=== PATIENT | female | born 1995 | race Caucasian/White ===

== ENCOUNTER 2019-02-04 14:20 | Outpatient (CLI) | payer MEDICAID, SELFPAY ==
[2019-02-04 14:44] LABS: Abs Immature Grans 0.01 k/cumm (0.0-0.09); Absolute Basophil Count 0.02 k/cumm (0.0-0.2); Absolute Eosinophil Count 0.05 k/cumm (0.0-0.7); Absolute Lymphocyte Count 2.07 k/cumm (1.2-3.4); Absolute Monocyte Count 0.45 k/cumm (0.11-0.7); Absolute Neutrophil Count 4.75 k/cumm (1.2-6.7); Basophils % 0.3; Eosinophils % 0.7; HCT 32.8 % (36.0-46.0); HGB 11.3 g/dL (12.0-15.5); Immature Grans % 0.1; Lymphocytes % 28.2; Mean Corp. HGB Concentration 34.5 g/dL (32.0-36.0); Mean Corpuscular Hemoglobin 30.8 pg (27.0-33.0); Mean Corpuscular Volume 89.4 fL (80-95); Mean Platelet Volume 12.3 fL (8.0-11.0); Monocytes % 6.1; Neutrophils % 64.6; Platelet Count 128 x1000/uL (130-400); RBC 3.67 m/cumm (4.00-5.20); RBC Distribution Width 12.5 % (11.7-14.6); White Blood Cell Count 7.35 k/cumm (4.4-10.8)
[2019-02-05 10:32] LABS: Hepatitis B Surface Ag Negative (NEGAT)
[2019-02-05 10:37] LABS: HIV-1/2 Ag & Ab Screen Negative (NEGAT); Hepatitis C Ab w Rflx HCV PCR Negative (NEGAT)
[2019-02-05 10:52] LABS: Rubella IgG Ab (UVM) Positive
[2019-02-05 10:59] LABS: Varicella IgG Antibody Negative
[2019-02-05 16:33] LABS: Syphilis Total Ab w/Reflex Nonreactive (Nonreactive)
== END 2019-02-04 14:40 ==
PROVIDERS: PCP Nurse Practitioner Family; Visit Provider Advanced Practice Midwife
DX: Z34.91 Encounter for supervision of normal pregnancy, unspecified, first trimester (principal); Z11.4 Encounter for screening for human immunodeficiency virus [HIV]; Z11.59 Encounter for screening for other viral diseases; Z11.3 Encounter for screening for infections with a predominantly sexual mode of transmission
CPT/HCPCS: 36415; 80307; 86787; 86803; 86850; 86900; 86901; 87340; 87389; 87491; 87591; 85025; 86762; 86780; 87086

== ENCOUNTER 2019-04-01 03:42 | Outpatient (CLI) | payer MEDICAID, SELFPAY ==
--- NOTE | 2019-04-01 09:38 | DI.US_ITS ---
SYMPTOMS/DIAGNOSIS: 18-WEEK ANATOMY SURVEY, Z34.90 OB ULTRASOUND: Predicted Gestational Age: Indication/History: 18+1 Wks Range: 17+1 to 19+1 Prior US done on: Determined by: First US LMP History EDC by prior US: 09/01/2019 For multiple gestations: Baby PLACENTA: Grade: 0 Location: Anterior Posterior PRESENTATION: RT LT LOW LYING PREVIA Cephalic Trans (Head RT LT ) Varied X Breech BIOMETRY: Anatomy Identified: BPD: 45 mm 19+3 wks 4-chamber Heart X Heart Rate 152 BPM HC: 156 mm 18+4 wks LVOT X Post Fossa X AC: 135 mm 18+6 wks RVOT X Ventricles X FL: 27mm 18 wks Stomach X Nose X Bladder X Lips X Cisterna Magna: 3.4 mm CI: 89 Kidneys X Palate X Cerebellum: 1.8 cm 3- vessel cord X Spine X EFW: grms % Cord Insertion X NS= not seen Composite Age (US) 18+5 wks Many abnormalities cannot be diagnosed. A normal exam does not exclude congenital abnormality. EDC by US: 08/28/2019 Amniotic Fluid Index: Normal TECH COMMENTS: ? mildly prominent right renal pelvis = 3.2 mm RUQ: LUQ: RLQ: LLQ: Total: cm Biophysical Profile: Score 0/2 DIANA (>2cm) Respirations (>30 sec) Body flexion/extension Extremity flexion/extension TOTAL SCORE RADIOLOGIST COMMENTS: The fetus was in variable position during the exam. The placenta is anterior. The biometric measurements correspond to 18 weeks 5 days and an EDC of August,. Amount of amniotic fluid appears normal. There is minimal prominence of the right renal pelvis, which appears to be within normal limits of variation. IMPRESSION: survey is within normal limits.
== END 2019-04-01 04:02 ==
PROVIDERS: PCP Nurse Practitioner Family; Visit Provider Advanced Practice Midwife
DX: Z34.90 Encounter for supervision of normal pregnancy, unspecified, unspecified trimester (principal)
CPT/HCPCS: 76805

== ENCOUNTER 2019-04-03 14:17 | Emergency (ER) | payer MEDICAID, SELFPAY ==
[2019-04-03 14:20] VITALS: BP 115/71; PULSE 69; RESP 16; TEMP 36.8; O2SAT 11
--- NOTE | 2019-04-03 14:33 | ED.GENADUL_ITS ---
Discharge Plan Disposition Patient Disposition: HOME Condition: Stable Discharge Details Chief Complaint: EyeProblem Clinical Impression: Right corneal abrasion Primary Care Provider: Milagro Corona ED Provider: Srinivas Gardner Home Meds and New Rx's Prescriptions: No Action folic acid 20 mg capsule 20 mg PO DAILY RF: 0 blood builder 1 tab PO DAILY Qty: 60 RF: 0 Discharge Instructions Instructions: Corneal Abrasion (ED) Additional Instructions: if you are not better on Saturday call [facility] at [phone] for an appointment if you are having worsening pain or vision changes return to the emergency department use the antibiotic ointment for 5 days Medical Decision Making 24 yo female comes in with right eye pain since last night after her cat scratched her per pt. She denies other injuries. She has pain in the right upper portion of her eye, denies deep eye pain, no drainage, no periorbital swelling, eomi, perrl, conjunctiva is injected. The vision in the left eye is 20/20 and the right eye is 20/30. Immediate relief of pain with tetracaine. On flourescein staining has a small 2mm corneal abrasion on conjunctiva at the 11 oclock position no evidence of globe rupture or hyphema or ititis. Will start on abx ointment and if not better by Saturday f/u with [facility] Differential Diagnosis conjunctivitis, corneal abrasion HPI General Mode of arrival: ambulatory . Date/Time Provider Initiated Documentation: 04/03/19 14:18 . Limitations to Documentation: no limitations . Information obtained by: patient . History of Present Illness 24 year old F presents to the emergency department with the chief complaint of right eye pain, described as moderate, Quality is described as aching, No relieving factors improve symptom(s), No exacerbating factors reported . Patient did receive the following treatments prior to arrival, none Related Data Home Medications Medication Instructions Recorded Confirmed folic acid 20 mg capsule 20 mg PO DAILY 01/22/19 04/03/19 blood builder 1 tab PO DAILY #60 tab 03/04/19 04/03/19 Previous Rx's Medication Instructions Recorded blood builder 1 tab PO DAILY #60 tab 03/04/19 Allergies Allergy/AdvReac Type Severity Reaction Status Date / Time No Known Allergies Allergy Verified 04/03/19 14:24 General Stated Complaint: EyeProblem WESLEY: 4 Review of Systems Review of Systems All systems reviewed & are unremarkable except as noted in HPI and below Constitutional Denies chills, Denies fever(s) and Denies weakness Cardiovascular Denies chest pain and Denies dyspnea Respiratory Denies cough and Denies dyspnea Gastrointestinal Denies abdominal pain, Denies nausea and Denies vomiting Musculoskeletal Denies joint swelling Neurologic Denies weakness PFSH Medical History (Updated 02/04/19 @ 12:41 by Dee Carbone LPN) IUD surveillance (Resolved) Surgical History (Updated 01/22/19 @ 18:02 by Sherry Victoria MD) Tooth extraction (Resolved) Family History Grandmother Essential hypertension Thyroid disease Grandfather Heart disease Sister Seizure disorder Social History Smoking/Tobacco Use Status: Never Alcohol Intake: never Drug use: Occasionally Substance use type: marijuana Do you feel safe at home: Yes Do you feel safe in your relationship?: Yes Female Reproductive History Menstrual Age of Menarche: 11 control method: none History History 2 Para 1 Hx # Term Pregnancies 1 Multiple births 0 Hx # Pregnancies 0 Ectopic pregnancies 0 AB induced 0 Hx Number of Living Children 1 AB spontaneous 0 Past Pregnancies Del. Date GA/Weeks # Outcome Route Wgt Sex Labor Lgth Anesthes ia Location Prov Complic 01/08/17 41 No Successful vaginal 3.941 kg Female [address] [place], [place] [id number] S[facility] Delivery Date: 01/08/17 On 02/04/19 @ 13:09 YOLANDA POTTS iol for post dates. w/o complications. Exam Const General: no acute distress Orientation: alert HENMT Head: normal to inspection Ears: external ears normal General nose exam: external nose normal Mouth: moist mucous membranes Eyes Pupils: PERRL Neck Neck: normal visual inspection Resp Effort & Inspection: normal respiratory effort and able to speak in complete sentences Cardio Rate: regular rate Skin General skin exam: no rashes or lesions noted Neuro General: alert and oriented x3 Extrem General: normal to inspection Psych Mental Status: mental status grossly normal Course Vital Signs Temperature 36.8 C 04/03/19 14:20 Pulse 69 04/03/19 14:20 Respiratory Rate 16 04/03/19 14:20 Blood Pressure 115/71 04/03/19 14:20 Pulse Oximetry 11 L 04/03/19 14:20 Temperature 36.8 C 04/03/19 14:20 Pulse 69 04/03/19 14:20 Respiratory Rate 16 04/03/19 14:20 Blood Pressure 115/71 04/03/19 14:20 Blood Pressure Position Sitting 04/03/19 14:20 Pulse Oximetry 11 L 04/03/19 14:20 Oxygen Delivery Method Room Air 04/03/19 14:20 Oxygen Flow Rate 0 04/03/19 14:20 Pain Level 5 04/03/19 14:20
[2019-04-03] MEDS: Erythromycin Ophth Oint 3.5 GM TUBE OP (14:36)
[2019-04-03] MEDS: Balanced Salt Solution 15 ML BTL OP (14:36)
[2019-04-03] MEDS: Tetracaine 0.5% 4 ML BTL OP (14:37)
[2019-04-03] MEDS: Fluorescein STRIPS 100/BOX 1 MG OP (14:37)
== END 2019-04-03 14:52 | disposition home or self-care (01) ==
PROVIDERS: Emergency Provider Emergency Medicine; PCP Nurse Practitioner Family
DX: S05.01XA Injury of conjunctiva and corneal abrasion without foreign body, right eye, initial encounter (principal); W55.03XA Scratched by cat, initial encounter
CPT/HCPCS: 99283

== ENCOUNTER 2019-04-07 15:51 | Outpatient (CLI) | payer MEDICAID, SELFPAY | END 2019-04-07 16:11 | PROVIDERS: PCP Nurse Practitioner Family; Visit Provider Advanced Practice Midwife | DX: Z34.92 Encounter for supervision of normal pregnancy, unspecified, second trimester (principal) | CPT/HCPCS: 36415; 86850; 90384 ==

== ENCOUNTER 2019-06-02 07:16 | Observation (INO) | payer MEDICAID, SELFPAY ==
[2019-06-02 15:54] LABS: Fetal Fibronectin Negative (Negative)
== END 2019-06-02 07:48 | disposition home or self-care (01) ==
PROVIDERS: Admitting Provider Advanced Practice Midwife; PCP Nurse Practitioner Family; Visit Provider Advanced Practice Midwife
DX: O60.02 Preterm labor without delivery, second trimester (principal); Z3A.27 27 weeks gestation of pregnancy; O28.8 Other abnormal findings on antenatal screening of mother
CPT/HCPCS: 87077; 59025; 82731; 87086; 87186; G0378

== ENCOUNTER 2019-06-10 10:33 | Outpatient (CLI) | payer MEDICAID, SELFPAY ==
[2019-06-10 13:33] LABS: HCT 29.5 % (36.0-46.0); HGB 9.7 g/dL (12.0-15.5); Mean Corp. HGB Concentration 32.9 g/dL (32.0-36.0); Mean Corpuscular Hemoglobin 30.5 pg (27.0-33.0); Mean Corpuscular Volume 92.8 fL (80-95); Mean Platelet Volume 11.7 fL (8.0-11.0); Platelet Count 187 x1000/uL (130-400); RBC 3.18 m/cumm (4.00-5.20); RBC Distribution Width 12.4 % (11.7-14.6); White Blood Cell Count 10.97 k/cumm (4.4-10.8)
[2019-06-10 13:37] LABS: Glucose,1 Hr (Glucola) 144 mg/dL (80-140)
== END 2019-06-10 10:53 ==
PROVIDERS: Advanced Practice Midwife; PCP Nurse Practitioner Family; Visit Provider Advanced Practice Midwife
DX: Z34.93 Encounter for supervision of normal pregnancy, unspecified, third trimester (principal)
CPT/HCPCS: 36415; 82950; 85027; 86850; 90384; 86870

== ENCOUNTER 2019-06-17 01:39 | Outpatient (RCR) | payer MEDICAID, SELFPAY ==
[2019-06-17] MEDS: Normal Saline Flush 10 ML SYR IVP (12:20)
[2019-06-17] MEDS: IRON SUCROSE COMPLEX 200 MG in Normal Saline 100 ML 440 MG IVPB (12:20)
== END 2019-06-18 23:59 | disposition home or self-care (01) ==
LOC: INF 01:39
PROVIDERS: PCP Nurse Practitioner Family; Visit Provider Advanced Practice Midwife
DX: O99.013 Anemia complicating pregnancy, third trimester (principal); Z3A.29 29 weeks gestation of pregnancy
CPT/HCPCS: 96365; J1756

== ENCOUNTER 2019-06-17 07:15 | Outpatient (CLI) | payer MEDICAID, SELFPAY ==
[2019-06-17 09:47] LABS: Glucose 1 Hour 105 mg/dL
[2019-06-17 11:45] LABS: Glucose 3 Hour 83 mg/dL
== END 2019-06-17 07:35 ==
PROVIDERS: PCP Nurse Practitioner Family; Visit Provider Advanced Practice Midwife
DX: Z34.93 Encounter for supervision of normal pregnancy, unspecified, third trimester (principal)
CPT/HCPCS: 36415; 82951

== ENCOUNTER 2019-07-15 01:03 | Outpatient (RCR) | payer MEDICAID, SELFPAY ==
[2019-07-01] MEDS: Normal Saline Flush 10 ML SYR IVP (10:49)
[2019-07-01] MEDS: IRON SUCROSE COMPLEX 200 MG in Normal Saline 100 ML 440 MG IVPB (10:49)
[2019-07-15] MEDS: Normal Saline Flush 10 ML SYR IVP (10:46)
[2019-07-15] MEDS: IRON SUCROSE COMPLEX 200 MG in Normal Saline 100 ML 440 MG IVPB (10:46)
== END 2019-07-18 23:59 | disposition home or self-care (01) ==
LOC: INF 01:03
PROVIDERS: PCP Nurse Practitioner Family; Visit Provider Advanced Practice Midwife
DX: O99.013 Anemia complicating pregnancy, third trimester (principal)
CPT/HCPCS: 96365; J1756

== ENCOUNTER 2019-07-15 12:31 | Outpatient (CLI) | payer MEDICAID, SELFPAY | END 2019-07-15 12:51 | PROVIDERS: PCP Nurse Practitioner Family; Visit Provider Advanced Practice Midwife | DX: O76 Abnormality in fetal heart rate and rhythm complicating labor and delivery (principal); Z3A.33 33 weeks gestation of pregnancy | CPT/HCPCS: 59025 ==

== ENCOUNTER 2019-08-05 11:56 | Outpatient (REF) | payer MEDICAID, SELFPAY ==
[2019-08-05 13:34] LABS: *AMPHETAMINES SCREEN URINE Negative (Negative); *BARBITURATES SCREEN URINE Negative (Negative); *BENZODIAZEPINES SCREEN URINE Negative (Negative); Cannabinoids THC POSITIVE (Negative); Cocaine Screen,Urine Negative (Negative); METHADONE URINE SCREEN Negative (Negative); OPIATES URINE SCREEN Negative (Negative)
[2019-08-05 13:36] LABS: Tricyclic Antidepressants Negative (Negative)
[2019-08-09 11:14] LABS: Buprenorphine Negative
== END 2019-08-05 12:16 ==
LOC: LBN 11:56
PROVIDERS: PCP Nurse Practitioner Family; Visit Provider Advanced Practice Midwife
DX: Z34.93 Encounter for supervision of normal pregnancy, unspecified, third trimester (principal); Z36.85 Encounter for antenatal screening for Streptococcus B
CPT/HCPCS: 80307; 87081

== ENCOUNTER 2019-08-13 00:42 | Outpatient (RCR) | payer MEDICAID, SELFPAY ==
[2019-07-29] MEDS: IRON SUCROSE COMPLEX 200 MG in Normal Saline 100 ML 440 MG IVPB (10:52)
[2019-07-29] MEDS: Normal Saline Flush 10 ML SYR IVP (10:53)
[2019-08-13] MEDS: Normal Saline Flush 10 ML SYR IVP (10:50)
[2019-08-13] MEDS: IRON SUCROSE COMPLEX 200 MG in Normal Saline 100 ML 440 MG IVPB (10:50)
== END 2019-08-18 23:59 | disposition home or self-care (01) ==
LOC: INF 00:42
PROVIDERS: PCP Nurse Practitioner Family; Visit Provider Advanced Practice Midwife
DX: O99.013 Anemia complicating pregnancy, third trimester (principal)
CPT/HCPCS: 96365; J1756

== ENCOUNTER 2019-08-27 02:37 | Outpatient (RCR) | payer MEDICAID, SELFPAY ==
[2019-08-27] MEDS: IRON SUCROSE COMPLEX 200 MG in Normal Saline 100 ML 440 MG IVPB (10:15)
[2019-08-27] MEDS: Normal Saline Flush 10 ML SYR IVP (10:16)
== END 2019-09-18 23:59 | disposition home or self-care (01) ==
LOC: INF 02:37
PROVIDERS: PCP Nurse Practitioner Family; Visit Provider Advanced Practice Midwife
DX: O99.013 Anemia complicating pregnancy, third trimester (principal); Z3A.39 39 weeks gestation of pregnancy
CPT/HCPCS: 96365; J1756

== ENCOUNTER 2019-08-28 13:31 | Outpatient (CLI) | payer MEDICAID, SELFPAY | END 2019-08-28 13:51 | PROVIDERS: PCP Nurse Practitioner Family; Visit Provider Advanced Practice Midwife | DX: O76 Abnormality in fetal heart rate and rhythm complicating labor and delivery (principal); Z3A.39 39 weeks gestation of pregnancy | CPT/HCPCS: 59025 ==

== ENCOUNTER 2019-09-04 07:39 | Inpatient (IN) | payer MEDICAID, SELFPAY ==
[2019-09-04 09:31] LABS: HCT 32.4 % (36.0-46.0); Mean Corpuscular Hemoglobin 31.3 pg (27.0-33.0); Mean Corpuscular Volume 92.3 fL (80-95); Mean Platelet Volume 11.7 fL (8.0-11.0); Platelet Count 160 x1000/uL (130-400); RBC 3.51 m/cumm (4.00-5.20); RBC Distribution Width 12.9 % (11.7-14.6)
[2019-09-04] MEDS: Nalbuphine 10 MG/ML AMP SC (18:07)
[2019-09-04] MEDS: Normal Saline Flush 10 ML SYR IVP (18:49)
[2019-09-04] MEDS: Lactated Ringers 500 ML IV (18:51)
[2019-09-04] MEDS: FentaNYL/ROPIvacaine 2 mcg/ml and 0.1% 200 ML CADD Cassette EP (19:28)
[2019-09-05 07:08] LABS: HCT 34.2 % (36.0-46.0); HGB 11.6 g/dL (12.0-15.5); Mean Corp. HGB Concentration 33.9 g/dL (32.0-36.0); Mean Corpuscular Hemoglobin 31.2 pg (27.0-33.0); Mean Corpuscular Volume 91.9 fL (80-95); Mean Platelet Volume 11.9 fL (8.0-11.0); Platelet Count 165 x1000/uL (130-400); RBC 3.72 m/cumm (4.00-5.20); RBC Distribution Width 12.8 % (11.7-14.6)
== END 2019-09-06 14:10 | disposition home or self-care (01) | DRG 806 ==
PROVIDERS: Advanced Practice Midwife; Admitting Provider Advanced Practice Midwife; PCP Nurse Practitioner Family; Visit Provider Advanced Practice Midwife
DX: O76 Abnormality in fetal heart rate and rhythm complicating labor and delivery (principal); O99.324 Drug use complicating childbirth; Z37.0 Single live birth; O62.3 Precipitate labor; Z3A.40 40 weeks gestation of pregnancy; O48.0 Post-term pregnancy; O99.02 Anemia complicating childbirth; D64.9 Anemia, unspecified; F12.10 Cannabis abuse, uncomplicated; Z29.13 Encounter for prophylactic Rho(D) immune globulin
CPT/HCPCS: 36415; 85027; 85461; 86850; 86900; 86901; 90384; J2790; J3490

== ENCOUNTER 2022-07-17 12:57 | Outpatient (CLI) | payer MEDICAID, SELFPAY ==
[2022-07-17 13:54] LABS: Panorama Kit Sent via Fed Ex
[2022-07-17 14:01] LABS: Absolute Basophil Count 0.06 10^3/uL (0.0-0.2); Absolute Lymphocyte Count 3.17 10^3/uL (1.2-3.4); Absolute Neutrophil Count 6.93 10^3/uL (1.2-6.7); Basophils % 0.5; Eosinophils % 2.2; HCT 34.8 % (36.0-46.0); HGB 11.7 g/dL (11.2-15.7); Immature Grans % 0.9; Lymphocytes % 28.5; MCH 30.8 pg (27.0-33.0); MCHC 33.6 % (32.0-36.0); MCV 92 fL (80-95); MPV 11.7 fL (8.0-11.0); Monocytes % 5.7; Neutrophils % 62.2; Platelet Count 237 10^3/uL (130-400); RDW 13.8 % (11.7-14.6); RDW-SD 46.5 fL; WBC 11.14 10^3/uL (4.4-10.8)
[2022-07-17 14:03] LABS: Absolute Eosinophil Count 0.25 10^3/uL (0.0-0.7); Absolute Monocyte Count 0.63 10^3/uL (0.1-0.8)
[2022-07-18 09:54] LABS: Varicella IgG Antibody Negative (See Note)
[2022-07-18 10:01] LABS: Rubella IgG Ab (UVM) Positive (See Note)
[2022-07-18 10:09] LABS: HIV-1/2 Ag & Ab Screen Negative (Negative)
[2022-07-18 11:46] LABS: Hepatitis B Surface Ag Negative (Negative)
[2022-07-18 12:15] LABS: Hepatitis C Ab w Rflx HCV PCR Negative (Negative)
[2022-07-19 14:49] LABS: Syphilis IgG w/Reflex Nonreactive (Nonreactive)
== END 2022-07-17 12:58 | disposition home or self-care (01) ==
LOC: LBO 12:59
PROVIDERS: PCP Nurse Practitioner Family; Visit Provider Obstetrics & Gynecology
DX: Z34.92 Encounter for supervision of normal pregnancy, unspecified, second trimester (principal); Z3A.14 14 weeks gestation of pregnancy
CPT/HCPCS: 36415; 86787; 86803; 86850; 86900; 86901; 87340; 87389; 85025; 86762; 86780

== ENCOUNTER → 2022-07-24 02:44 | Outpatient (CLI) | payer MEDICAID, SELFPAY ==
--- NOTE | 2022-07-24 07:15 | DI.US_ITS ---
Exam(s) US OB 2-3 TRIMESTER W MOD EXAM: US OB 2-3 TRIMESTER W MOD CLINICAL HISTORY: 2nd trimester dating sono,z34.90. TECHNIQUE: Transabdominal obstetrical ultrasound performed. COMPARISON: US US OB 2-3 trimester from 04/01/2019 FINDINGS: Number of fetuses: 1 position: Varied. heart rate: 158bpm Placental location: There is a grade 0 posterior placenta. Amniotic fluid index: Amount of fluid is within normal limits. ANATOMICAL SURVEY: The patient presents at 14 weeks 4 days. anatomic evaluation cannot b e performed at this time. BIOMETRIC DATA: BPD: 2.72cm,14weeks 6days HC: 10.16cm,14weeks 5days AC: 8.35cm,14weeks 5days FL: 1.32cm,13weeks 6days EFW: 95.42g, 0.22lb, 10.8% Composite Age: 14weeks 4days SUYAPA:01/18/2023 Heart Rate:158bpm IMPRESSION: 1. Single live intrauterine gestation as above. 2. The patient presents too early for anatomic survey. The patient should return for pernell tomic survey according to protocol. DATA REPOSITORY:
== END ==
PROVIDERS: PCP Nurse Practitioner Family; Visit Provider Obstetrics & Gynecology
DX: Z34.92 Encounter for supervision of normal pregnancy, unspecified, second trimester (principal)
CPT/HCPCS: 76805

== ENCOUNTER 2022-08-23 01:26 | Outpatient (CLI) | payer MEDICAID, SELFPAY ==
--- NOTE | 2022-08-23 | DI.US_ITS ---
Exam(s) US OB F/U FACIAL/LVOT/RVOT EXAM: US OB F/U FACIAL/LVOT/RVOT test CLINICAL HISTORY: TO COMPLETE SURVEY. TECHNIQUE: Transabdominal obstetrical ultrasound was performed. COMPARISON: US US OB 2-3 TRIMESTER W MOD from 07/24/2022 FINDINGS: There is a single viable intrauterine gestation with cardiac activity identified-157 bpm. Amniotic fluid: There is a normal amount of amniotic fluid. Placental location: The placenta is fundal-right,with no evidence of placenta previa. ANATOMY: A 3 vessel umbilical cord is seen. A four-chamber cardiac view was obtained. Right and left ventricular outflow tracts were imaged. There are no obvious abnormalities of the spinal column evident. There is no obvious abnormal ity of the anterior abdominal wall. stomach and urinary bladder are identified and there is no evidence of hydronephrosis. No abnormalities of the upper lip region are identified. No evidence of choroid plexus cysts i n the brain. Dating parameters place this at approximately 18 weeks and 5 days gestational age. BPD measures 18 weeks and 5 days HC measures 18 weeks and 2 days AC measures 19 weeks and 1 day FL measures 18 weeks and 3 days Estimated weight is 254 gm - Fetus is at the 37th percentile on the Hadlock scale. IMPRESSION:: Single viable intrauterine gestation which is approximately 18 weeks and 5 days gestati onal age, implying an SUYAPA of January 19, 2023.. There are no obvious anomalies evident on today's study. The placenta is fundal-right with no evidence of placenta previa. There is a normal amount of amniotic fluid. DATA REPOSITORY:
== END 2022-08-23 01:46 ==
LOC: DI 01:26
PROVIDERS: PCP Nurse Practitioner Family; Visit Provider Obstetrics & Gynecology
DX: Z34.92 Encounter for supervision of normal pregnancy, unspecified, second trimester (principal)
CPT/HCPCS: 76815

== ENCOUNTER 2022-09-03 12:38 | Outpatient (REF) | payer MEDICAID, SELFPAY ==
[2022-09-03 13:45] LABS: *AMPHETAMINES SCREEN URINE Negative (Negative); *BARBITURATES SCREEN URINE Negative (Negative); *BENZODIAZEPINES SCREEN URINE Negative (Negative); Cannabinoids THC Negative (Negative); Cocaine Screen,Urine Negative (Negative); METHADONE URINE SCREEN Negative (Negative); OPIATES URINE SCREEN Negative (Negative)
[2022-09-03 13:51] LABS: Tricyclic Antidepressants Negative (Negative)
[2022-09-04 12:16] LABS: Chlamydia Result Negative (Negative); GC Result Negative (Negative)
== END 2022-09-03 12:39 | disposition home or self-care (01) ==
LOC: LBN 12:38
PROVIDERS: Advanced Practice Midwife; PCP Nurse Practitioner Family; Visit Provider Obstetrics & Gynecology
DX: Z34.92 Encounter for supervision of normal pregnancy, unspecified, second trimester (principal); Z3A.21 21 weeks gestation of pregnancy; Z11.3 Encounter for screening for infections with a predominantly sexual mode of transmission
CPT/HCPCS: 80307; 87491; 87591; 87086

== ENCOUNTER 2022-10-22 02:59 | Outpatient (CLI) | payer MEDICAID, SELFPAY ==
[2022-10-22 08:13] LABS: HCT 32.8 % (36.0-46.0); HGB 10.9 g/dL (11.2-15.7); MCH 30.2 pg (27.0-33.0); MCHC 33.2 % (32.0-36.0); MCV 91 fL (80-95); MPV 11.8 fL (8.0-11.0); Platelet Count 162 10^3/uL (130-400); RBC 3.61 10^6/uL (3.93-5.22); RDW 11.9 % (11.7-14.6); RDW-SD 39.3 fL; WBC 6.83 10^3/uL (4.4-10.8)
[2022-10-22 08:28] LABS: Glucose,1 Hr (Glucola) 93 mg/dL (80-140)
== END 2022-10-22 03:00 | disposition home or self-care (01) ==
LOC: LBO 02:59
PROVIDERS: PCP Nurse Practitioner Family; Visit Provider Advanced Practice Midwife
DX: O36.0130 Maternal care for anti-D [Rh] antibodies, third trimester, not applicable or unspecified (principal); Z67.91 Unspecified blood type, Rh negative; Z3A.28 28 weeks gestation of pregnancy
CPT/HCPCS: 36415; 82950; 85027; 86850; 90384

== ENCOUNTER 2022-10-22 11:20 | Outpatient (REF) | payer MEDICAID, SELFPAY ==
[2022-10-22 12:07] LABS: *AMPHETAMINES SCREEN URINE Negative (Negative); *BARBITURATES SCREEN URINE Negative (Negative); *BENZODIAZEPINES SCREEN URINE Negative (Negative); Cannabinoids THC Negative (Negative); Cocaine Screen,Urine Negative (Negative); METHADONE URINE SCREEN Negative (Negative); OPIATES URINE SCREEN Negative (Negative); Tricyclic Antidepressants Negative (Negative)
[2022-10-26 16:50] LABS: Buprenorphine Negative ng/mL (Cutoff: 5.0); Norbuprenorphine Negative ng/mL (Cutoff: 2.5)
== END 2022-10-22 11:21 | disposition home or self-care (01) ==
LOC: LBN 11:20
PROVIDERS: Advanced Practice Midwife; PCP Nurse Practitioner Family; Visit Provider Advanced Practice Midwife
DX: Z34.93 Encounter for supervision of normal pregnancy, unspecified, third trimester (principal); Z3A.28 28 weeks gestation of pregnancy
CPT/HCPCS: 80307; 80348

== ENCOUNTER 2022-12-17 15:47 | Outpatient (REF) | payer MEDICAID, SELFPAY ==
[2022-12-17 18:40] LABS: *AMPHETAMINES SCREEN URINE Negative (Negative); *BARBITURATES SCREEN URINE Negative (Negative); *BENZODIAZEPINES SCREEN URINE Negative (Negative); Cannabinoids THC Negative (Negative); Cocaine Screen,Urine Negative (Negative); METHADONE URINE SCREEN Negative (Negative); OPIATES URINE SCREEN Negative (Negative); Tricyclic Antidepressants Negative (Negative)
[2022-12-29 00:23] LABS: Buprenorphine Negative ng/mL (Cutoff: 5.0); Norbuprenorphine Negative ng/mL (Cutoff: 2.5)
== END 2022-12-17 15:48 | disposition home or self-care (01) ==
LOC: LBN 15:47
PROVIDERS: PCP Nurse Practitioner Family; Visit Provider Advanced Practice Midwife
DX: Z34.90 Encounter for supervision of normal pregnancy, unspecified, unspecified trimester (principal)
CPT/HCPCS: 80307; 80348; 87081

== ENCOUNTER 2023-01-21 08:07 | Outpatient (CLI) | payer MEDICAID, SELFPAY ==
[2023-01-21 13:02] VITALS: BP 110/75; PULSE 87
[2023-01-21 13:12] VITALS: BP 110/75; PULSE 87; TEMP 36.5
--- NOTE | 2023-01-21 14:09 | W.OBNST ---
Date of service: 01/21/23 Time of Service: 14:09 NST Evaluation Reason for NST Reasons for Nonstress Test: POSTDATES Gestational Age Gestational Age in Weeks and Days: 41 Weeks and 1Days Test and Monitor Explained Test/Monitor Explained: Test Explained, Monitor Explained and Patient Verbalized Understanding Vital Signs Blood Pressure: 110/75 Pulse: 87 Temperature: 97.7 F NST Information Date on Monitor: 01/21/23 Time on Monitor: 12:58 Date off Monitor: 01/21/23 Time off Monitor: 13:32 Total Time on Monitor: 34 NST Interventions: PO Hydration Contraction Frequency: 0 NST Evaluation Patient States Movement: Present FHR Baseline: 125 Variability: Moderate 6-25 bpm Accelerations: 15x15 Decelerations: None NST Results: Reactive Note Ultrasound Done: DIANA Indication: Other (postdates) Total DIANA: 14.5 Other Pertinent Findings: Heart Rate (120), Presentation (ROP) and Placental Location (posterior) Coding for DIANA w/NST: Completed Exam (DIANA nml, NST reactive, breathing movements incidentally visualized). NST Note Note: Pt declines IOL for postdates, will return in 3 days for NST @ 41+4 wks NST Reviewed and Verified by: Nohelia Quiñonez
[2023-01-21 14:11] VITALS: BP 110/75; PULSE 87; TEMP 36.5
--- NOTE | 2023-01-21 14:51 | W.OBNST ---
Date of service: 01/21/23 Time of Service: 14:51 NST Evaluation Reason for NST Reasons for Nonstress Test: POSTDATES Gestational Age Gestational Age in Weeks and Days: 41 Weeks and 1Days Test and Monitor Explained Test/Monitor Explained: Test Explained, Monitor Explained and Patient Verbalized Understanding Vital Signs Blood Pressure: 110/75 Pulse: 87 Temperature: 97.7 F NST Information Date on Monitor: 01/21/23 Time on Monitor: 12:58 Date off Monitor: 01/21/23 Time off Monitor: 13:32 Total Time on Monitor: 34 NST Interventions: PO Hydration Contraction Frequency: 0 NST Evaluation Patient States Movement: Present FHR Baseline: 125 Variability: Moderate 6-25 bpm Accelerations: 15x15 Decelerations: None NST Results: Reactive Note Ultrasound Done: N/A. NST Note Note: NST for post dates. No signs of labor. RTO 3 days for repeat NST and discussion of IOL. SVE - inner os closed/20%/-3. DIANA performed by Yessica owens CNM and is 14. see pocus note. NST Reviewed and Verified by: Anuja Mejias
[2023-01-21 14:53] VITALS: BP 110/75; PULSE 87; TEMP 36.5
== END 2023-01-21 14:17 | disposition home or self-care (01) ==
LOC: BCD 08:13 → OBS 12:59
PROVIDERS: PCP Nurse Practitioner Family; Visit Provider Advanced Practice Midwife
DX: O48.0 Post-term pregnancy (principal); Z3A.41 41 weeks gestation of pregnancy
CPT/HCPCS: 59025

== ENCOUNTER 2023-01-24 07:36 | Outpatient (CLI) | payer MEDICAID, SELFPAY ==
[2023-01-24 13:30] VITALS: BP 120/75; PULSE 74; TEMP 36.6
--- NOTE | 2023-01-24 14:50 | W.OBNST ---
Date of service: 01/24/23 Time of Service: 13:50 NST Evaluation Reason for NST Reasons for Nonstress Test: POSTDATES Gestational Age Gestational Age in Weeks and Days: 41 Weeks and 4Days Test and Monitor Explained Test/Monitor Explained: Test Explained, Monitor Explained and Patient Verbalized Understanding Vital Signs Blood Pressure: 120/75 Pulse: 74 Temperature: 97.9 F NST Information Time on Monitor: 12:50 Date off Monitor: 01/24/23 Time off Monitor: 13:28 NST Interventions: Notify Provider Contraction Frequency: occasional NST Evaluation Patient States Movement: Present FHR Baseline: 130 Variability: Moderate 6-25 bpm Accelerations: 15x15 Decelerations: None NST Results: Reactive Note Ultrasound Done: N/A. NST Note Note: Risks and benefits of induction for postdates reviewed in detail with pt Recommendation made for IOL to begin tomorrow morning, pt declines, her reason being she doesn't want to risk delivering on Saturday which is her fathers birthday. She also recounts a very negative induction experience with her first delivery. Pt does consent to scheduled IOL on Saturday evening, January 27 (@ 42 wks),scheduled to present at 1900. Cvx exam 1-2/thick, softening, posterior, vtx -4, intact membranes NST Reviewed and Verified by: Nohelia Quiñonez
[2023-01-24 14:51] VITALS: BP 120/75; PULSE 74; TEMP 36.6
== END 2023-01-24 13:45 | disposition home or self-care (01) ==
LOC: BCD 07:37 → OBS 13:02
PROVIDERS: PCP Nurse Practitioner Family; Visit Provider Advanced Practice Midwife
DX: O48.0 Post-term pregnancy (principal); Z3A.41 41 weeks gestation of pregnancy
CPT/HCPCS: 59025

== ENCOUNTER 2023-01-27 18:42 | Inpatient (IN) | payer MEDICAID, SELFPAY ==
--- NOTE | 2023-01-27 19:36 | HPE_ITS ---
Date of service: 01/27/23 Time of Service: 19:36 Assessment and Plan Assessment and plan (1) Post-dates : Status: Acute (2) Encounter for induction of labor: Status: Acute Assessment and plan: A: 28 yo @ 42 wks by LMP EGA @ 41+2 by first ultrasound at 14 wks IOL via cervical ripening, clayton score=2 R&B reviewed, informed consent given by pt GBS neg, Rh neg & received RhoGam @ 28 wks Low risk for SD, moderate risk for PPH d/t IOL process Category 1 tracing P: Admit to BC, CBC, T&S Misoprostel guidelines for cvx ripening Comfort measures as pt desires Dr. Aranda available for consultation Anticipate OB-HPI Labor/Delivery History of Present Illness Reason for Visit: Induction for postdates Chief Complaint: Scheduled Induction of Labor Indication for Induction: Post Date. SUYAPA Calculator Estimated Delivery Date Method Current WG Current Estimate 01/13/23 LMP (Certain) 42w 0d Other Estimates 01/18/23 Ultrasound #1 41w 2d History of Present Expected Delivery Route/Plan - CNM FOB/ - Kris Oneal (3rd baby together) BG Wants tub room, plans to decline Vit K & Hep B, OK w/eye ointment GBS negative Specific Issues/Plan 1. RH neg - Received rhogam at 28 weeks done 2. Declines CF/SMA screen, Panorama 46XX low risk x5 - info given to Mattie per pt's request 3. VZV non immune, offer vaccine post 4. H and H - 10.9/32.8- high iron foods recommended. 5. May want to keep placenta, not sure 6. Poor dentition with broken tooth, extraction done early in Assessment: History Reviewed & Current Informed Consent Informed Consent: Induction of Labor and Risk,Benefits,Alternatives Discussed Review of Systems Narrative: ROS completed and found to be noncontributory other then HPI PFSH All Active Problems (Updated 01/27/23 @ 18:46 by Nohelia Quiñonez) Post-dates (Acute) Encounter for induction of labor (Acute) Maternal varicella, non-immune (Acute) Rh negative state in antepartum period (Acute) (Acute) Medical History IUD surveillance Surgical History Tooth extraction [place] teeth 2013: Vomiting with anesthesia Family History Grandmother Essential hypertension Thyroid disease Grandfather Heart disease Sister Seizure disorder ? if emotionally triggered. Mother Essential hypertension Other Status post normal vaginal delivery Social History Smoking/Tobacco Use Status: Never Smoking risk assessment performed?: Yes Alcohol Intake: never Drug use: Occasionally Substance use type: marijuana Seatbelt use: always Do you feel safe at home: Yes Do you feel safe in your relationship?: Yes Female Reproductive History Menstrual Age of Menarche: 11 control method: none History History 3 Para 2 Hx # Term Pregnancies 2 Multiple births 0 Hx # Pregnancies 0 Ectopic pregnancies 0 AB induced 0 Hx Number of Living Children 2 AB spontaneous 0 Past Pregnancies Del. Date GA/Weeks # Preg Succ Route Wgt Sex Labor Lgth Anesth esia Location Prov Complic 01/08/17 41 No vaginal 8 lb 11 oz Female 12 regional D. Dulude shaun 09/04/19 40 No vaginal 6 lb 13 oz Male 2 hrs 5 min regional Anuja Mejias CNM Delivery Date: 01/08/17 Last Updated by: Anuja Mejias CNM iol for post dates. w/o complications. Dian Delivery Date: 09/04/19 Last Updated by: Anuja Mejias CNM Baldev, arrhythmia Meds Allergies and Home Medications Allergies Allergy/AdvReac Type Severity Reaction Status Date / Time No Known Allergies Allergy Verified 01/15/23 14:20 Home Medications Medication Instructions Recorded Confirmed Type Unknown [No Known Home Meds] 06/29/22 01/21/23 History Exam Physical Exam Vital Signs Reviewed: Yes Constitutional Constitutional: no acute distress, average body habitus and cooperative Detailed Labor and Delivery Exam Dilation: 1 Effacement (%): 20 station: -3 Position: ROP Cervix position: posterior Consistency: medium Clayton Score: Cervical Points Exam 0 1 2 3 Dilation Closed 1-2cm 3-4 cm 5-6cm Effacement 0-30% 40-50% 60-70% 80% Consistency Firm Medium Soft Station -3 -2 -1,0 +1,+2 Position Posterior Mid Anterior CLAYTON Score(Cervical Ripeness Score): 2 Amniotic Membrane Status: Intact Fetus A Heart Rate Baseline: 130 Monitor Accelerations: 15 X 15 Monitor Decelerations: None Variability: Moderate (6-25 BPM) Categories: Category I Est. Weight: 6 lb 6.294 oz Est. Weight: 2900 gms HEENT Exam HEENT Exam: Normal Neck Exam Neck Exam: Normal Chest/Brest/Axilla Exam Chest Exam: Normal Breast Exam Breast Exam: Not Done Respiratory Exam Respiratory Exam: Normal Cardiovascular Exam Cardiovascular Exam: Normal Abdominal Exam Abdominal Exam: Normal (Gravid, nontender) Rectal Exam Rectal Exam: Normal Exam Exam: Normal Extremities Exam Extremities Exam: Normal Back/Spine/Pelvis Exam Back Exam: Normal Pelvis Adequate: Yes (proven to 11) Skin Exam Skin Exam: Normal Neurological Exam Neurological Exam: Normal Psychiatric Exam Psychiatric Exam: Normal Results Results Group Beta Strep: Negative Blood Type: O- Rubella Status: Immune Varicella Immunity: Nonimmune Risk Assessment Risk for Shoulder Dystocia Historical/Initial OB: NEGATIVE FOR: Pelvic Abnormality, Pre- BMI>30, Previous Shoulder Dystocia or Previous Macrosomia Increased Risk?: No Date/Initial: 09/03/22 Delivery Plan @ 36wks: 12/17/22 MARK HODGE Risk for Pre-Eclampsia Daily Dose ASA Indicated: No Date Initiated/Initials: 09/03/22 Yes, if one or more: NEGATIVE FOR: Hx Pre-E/Gest HTN, Chronic HTN, Multiple Gestation, Pre-gestational DM, Renal Disease, Systemic Lupus or APA Syndrome Yes, if 2 or more: NEGATIVE FOR: Nulliparity, Age>= 35 yrs, >10yr btwn pregnancies, BMI>30, ethinicty, Mother/Sister w/ Pre-E or Previous IUGR Risk for Post- Hemorrhage Initial: NEGATIVE FOR: Multiple Gestation, Previous PPH, Known Clotting Deficiency, Grand Multiparity or Anticoagulation At Risk?: Yes (due to induction of labor process) Counseled re: Active Management: Yes Date/Initials: 09/03/22 Risks Reviewed Risks Reviewed Upon Admission: Yes
[2023-01-27 19:49] LABS: HCT 33.2 % (36.0-46.0); HGB 11.6 g/dL (11.2-15.7); MCHC 34.9 % (32.0-36.0); MCV 89 fL (80-95); MPV 12.4 fL (8.0-11.0); Platelet Count 178 10^3/uL (130-400); RBC 3.74 10^6/uL (3.93-5.22); RDW 12.2 % (11.7-14.6); RDW-SD 39.4 fL; WBC 9.71 10^3/uL (4.4-10.8)
[2023-01-27 19:56] VITALS: BP 97/60; PULSE 71; TEMP 36.8
[2023-01-27] MEDS: miSOPROStol 25 MCG TAB 50 MCG PO (20:05)
[2023-01-27 22:08] VITALS: BP 111/73; PULSE 71; TEMP 37.2
[2023-01-28] VITALS (12 sets, daily range): BP systolic 95–116; BP diastolic 53–71; PULSE 63–78; RESP 18; TEMP 36.6–37.6
--- NOTE | 2023-01-28 05:53 | W.PM.OBNL1 ---
Date of service: 01/28/23 Time of Service: 05:53 Informed Consent Informed Consent: Induction of Labor and Risk,Benefits,Alternatives Discussed Pelvic Exam Comments: deferred Assessment and Plan Assessment and plan (1) Encounter for induction of labor: Status: Acute Assessment and plan: A: IOL for postdates in low risk multipara Unfavorable cvx on admission Category 1 tracing P: Continue cervical ripening Assess pt for 2nd dose of miso this morning Objective Abnormal lab results 01/27/23 Range/Units 19:40 RBC 3.74 L (3.93-5.22) 10^6/uL Hct 33.2 L (36.0-46.0) % MPV 12.4 H (8.0-11.0) fL Temp Pulse BP 98.2 F 71 99/53 L 01/28/23 00:16 01/28/23 00:16 01/28/23 00:16 Laboratory Results WBC 9.71 10^3/uL (4.4-10.8) 01/27/23 19:40 RBC 3.74 10^6/uL (3.93-5.22) L 01/27/23 19:40 Hgb 11.6 g/dL (11.2-15.7) 01/27/23 19:40 Hct 33.2 % (36.0-46.0) L 01/27/23 19:40 MCV 89 fL (80-95) 01/27/23 19:40 MCH 31.0 pg (27.0-33.0) 01/27/23 19:40 MCHC 34.9 % (32.0-36.0) 01/27/23 19:40 RDW 12.2 % (11.7-14.6) 01/27/23 19:40 Plt Count 178 10^3/uL (130-400) 01/27/23 19:40 MPV 12.4 fL (8.0-11.0) H 01/27/23 19:40 Patient ABO/Rh O Negative 01/27/23 19:40 Antibody Screen NEGATIVE 01/27/23 19:40 Vital Signs Reviewed: Yes Objective Narrative Objective Narrative: Miso 50 mcg given 2000 after admit procedures and category 1 tracing Pt remained comfortable throughout the evening & night RN held 2nd dose for difficulty interpreting the tracing, Fetus very active and uterine irritability noted per toco at the time Category 1 tracing re-established, monitors off & pt fell asleep vital signs stable Subjective Interval history since last seen: Pt sleeping
[2023-01-28] MEDS: miSOPROStol 25 MCG TAB PO (06:38)
--- NOTE | 2023-01-28 08:23 | W.PM.OBNL1 ---
Date of service: 01/28/23 Time of Service: 08:20 Informed Consent Informed Consent: Induction of Labor and Risk,Benefits,Alternatives Discussed Pelvic Exam Comments: VE deferred until 1030 unless otherwise indicated by maternal status Contractions Monitor Mode: External Contraction Frequency(min): 2-4 Contraction Duration(sec): 45-60 Intensity: Mild/Moderate Fetus A Monitor: External (US) Heart Rate Baseline: 120 Variability: Moderate (6-25 BPM) Categories: Category I Accelerations: 15 X 15 Decelerations: None Amniotic Membrane Status: Intact Assessment and Plan Assessment and plan (1) Encounter for induction of labor: Status: Acute Assessment and plan: 1. Plan to reassess at 1030 for cervical change and discuss plan of care. KH Objective Abnormal lab results 01/27/23 Range/Units 19:40 RBC 3.74 L (3.93-5.22) 10^6/uL Hct 33.2 L (36.0-46.0) % MPV 12.4 H (8.0-11.0) fL Temp Pulse Resp BP 98.8 F 68 18 114/70 01/28/23 07:09 01/28/23 07:09 01/28/23 07:09 01/28/23 07:09 Laboratory Results WBC 9.71 10^3/uL (4.4-10.8) 01/27/23 19:40 RBC 3.74 10^6/uL (3.93-5.22) L 01/27/23 19:40 Hgb 11.6 g/dL (11.2-15.7) 01/27/23 19:40 Hct 33.2 % (36.0-46.0) L 01/27/23 19:40 MCV 89 fL (80-95) 01/27/23 19:40 MCH 31.0 pg (27.0-33.0) 01/27/23 19:40 MCHC 34.9 % (32.0-36.0) 01/27/23 19:40 RDW 12.2 % (11.7-14.6) 01/27/23 19:40 Plt Count 178 10^3/uL (130-400) 01/27/23 19:40 MPV 12.4 fL (8.0-11.0) H 01/27/23 19:40 Patient ABO/Rh O Negative 01/27/23 19:40 Antibody Screen NEGATIVE 01/27/23 19:40 Subjective Interval history since last seen: Remains very comfortable. Is aware of contractions but not uncomfortable. Reports wanting to avoid pitocin if possible. Will be off monitor soon to allow for ambulation and position changes. KH Results Hemoglobin/Hematocrit: Hgb 11.6 g/dL (11.2-15.7) 01/27/23 19:40 Hct 33.2 % (36.0-46.0) L 01/27/23 19:40 Abnormal Lab Findings: Abnormal Labs 01/27/23 19:40 RBC 3.74 L Hct 33.2 L MPV 12.4 H
[2023-01-28] MEDS: miSOPROStol 25 MCG TAB VG ×2 (13:06→17:58)
--- NOTE | 2023-01-28 13:10 | W.PM.OBNL1 ---
Date of service: 01/28/23 Time of Service: 13:05 Informed Consent Informed Consent: Induction of Labor and Risk,Benefits,Alternatives Discussed Pelvic Exam Dilation: 2 Effacement (%): 40 station: -3 Cervix Position: posterior Consistency: medium Contractions Monitor Mode: External Contraction Frequency(min): 2-4 Contraction Duration(sec): 40-60 Intensity: Mild Fetus A Monitor: External (US) Heart Rate Baseline: 120 Variability: Moderate (6-25 BPM) Categories: Category I Amniotic Membrane Status: Intact Assessment and Plan Assessment and plan (1) Encounter for induction of labor: Status: Acute Assessment and plan: 1. Discussed induction methods available and risks and benefits to each today, Leeanne prefers to continue with misoprostol at this point but agrees to change to vaginal dose. 2. Declines Cook catheter or herman, declines pitocin at this time. 3. 25 mcg Miso to posterior fornix, will reassess in 4 hours or prn. KH Objective Abnormal lab results 01/27/23 Range/Units 19:40 RBC 3.74 L (3.93-5.22) 10^6/uL Hct 33.2 L (36.0-46.0) % MPV 12.4 H (8.0-11.0) fL Temp Pulse Resp BP 97.9 F 70 18 114/66 01/28/23 11:59 01/28/23 11:59 01/28/23 11:59 01/28/23 11:59 Laboratory Results WBC 9.71 10^3/uL (4.4-10.8) 01/27/23 19:40 RBC 3.74 10^6/uL (3.93-5.22) L 01/27/23 19:40 Hgb 11.6 g/dL (11.2-15.7) 01/27/23 19:40 Hct 33.2 % (36.0-46.0) L 01/27/23 19:40 MCV 89 fL (80-95) 01/27/23 19:40 MCH 31.0 pg (27.0-33.0) 01/27/23 19:40 MCHC 34.9 % (32.0-36.0) 01/27/23 19:40 RDW 12.2 % (11.7-14.6) 01/27/23 19:40 Plt Count 178 10^3/uL (130-400) 01/27/23 19:40 MPV 12.4 fL (8.0-11.0) H 01/27/23 19:40 Patient ABO/Rh O Negative 01/27/23 19:40 Antibody Screen NEGATIVE 01/27/23 19:40 Results Hemoglobin/Hematocrit: Hgb 11.6 g/dL (11.2-15.7) 01/27/23 19:40 Hct 33.2 % (36.0-46.0) L 01/27/23 19:40 Abnormal Lab Findings: Abnormal Labs 01/27/23 19:40 RBC 3.74 L Hct 33.2 L MPV 12.4 H Pocus Exam Limited OB Exam DATE OF EXAM:: 01/28/23 TIME OF EXAM:: 12:42 PROVIDER THAT PERFORMED THE STUDY: Anuja Lopez IS THIS A REPEAT EXAM DURING THIS ENCOUNTER: No Type of Exam: Pelvic OB Trans Abdominal REASON FOR EXAM: other (presentation) indication: presentation in labor Exam Complete. DIFFERENTAL DIAGNOSES: presentation cephalic vs breech, confirmed cephalic LOT
--- NOTE | 2023-01-28 17:37 | W.PM.OBNL1 ---
Date of service: 01/28/23 Time of Service: 17:37 Informed Consent Informed Consent: Induction of Labor and Risk,Benefits,Alternatives Discussed Pelvic Exam Dilation: 2 Effacement (%): 40 station: -2 Cervix Position: posterior Consistency: soft BISHOPS Score(Cervical Ripeness Score): 5 Contractions Monitor Mode: Palpation Contraction Frequency(min): 2-6 Contraction Duration(sec): 60 Intensity: Mild Fetus A Monitor: External (US) Heart Rate Baseline: 125 Variability: Moderate (6-25 BPM) Accelerations: 15 X 15 Amniotic Membrane Status: Intact Assessment and Plan Assessment and plan (1) Encounter for induction of labor: Status: Acute Assessment and plan: 1. Will do another dose of vaginal misoprostol and reassess in 4 hours for change or prn 2. Consider AROM if some change occurs as augmentation to Misoprostol. 3. Continue to expect NVD. KH Objective Abnormal lab results 01/27/23 Range/Units 19:40 RBC 3.74 L (3.93-5.22) 10^6/uL Hct 33.2 L (36.0-46.0) % MPV 12.4 H (8.0-11.0) fL Temp Pulse Resp BP 98.4 F 76 18 114/62 01/28/23 16:07 01/28/23 16:07 01/28/23 16:07 01/28/23 16:07 Laboratory Results WBC 9.71 10^3/uL (4.4-10.8) 01/27/23 19:40 RBC 3.74 10^6/uL (3.93-5.22) L 01/27/23 19:40 Hgb 11.6 g/dL (11.2-15.7) 01/27/23 19:40 Hct 33.2 % (36.0-46.0) L 01/27/23 19:40 MCV 89 fL (80-95) 01/27/23 19:40 MCH 31.0 pg (27.0-33.0) 01/27/23 19:40 MCHC 34.9 % (32.0-36.0) 01/27/23 19:40 RDW 12.2 % (11.7-14.6) 01/27/23 19:40 Plt Count 178 10^3/uL (130-400) 01/27/23 19:40 MPV 12.4 fL (8.0-11.0) H 01/27/23 19:40 Patient ABO/Rh O Negative 01/27/23 19:40 Antibody Screen NEGATIVE 01/27/23 19:40 Subjective Interval history since last seen: Reports she had more discomfort after having vaginal dose of misoprostol. Not feeling active labor. Denies LOF or vaginal bleeding. Would like to do AROM once 3cm for augmentation but agrees to another vaginal dose of misoprostol first. KH Results Hemoglobin/Hematocrit: Hgb 11.6 g/dL (11.2-15.7) 01/27/23 19:40 Hct 33.2 % (36.0-46.0) L 01/27/23 19:40 Abnormal Lab Findings: Abnormal Labs 01/27/23 19:40 RBC 3.74 L Hct 33.2 L MPV 12.4 H
--- NOTE | 2023-01-28 22:14 | W.PM.OBNL1 ---
Date of service: 01/28/23 Time of Service: 22:14 Informed Consent Informed Consent: Induction of Labor and Risk,Benefits,Alternatives Discussed Pelvic Exam Dilation: 2.5 Effacement (%): 60 station: -2 Cervix Position: posterior Consistency: medium (internal os is medium firmness, ext. os is soft) BISHOPS Score(Cervical Ripeness Score): 5 Contractions Monitor Mode: External Contraction Frequency(min): 2-3 Contraction Duration(sec): 60 Intensity: Mild Fetus A Assessment Note: Currently off monitor to walk. Most recent tracing is CAT I with baseline of 125-130 with moderate variability and accelerations to 150's. No decelerations. Assessment and Plan Assessment and plan (1) Encounter for induction of labor: Status: Acute Assessment and plan: 1. Reviewed options of AROM and if no change will need to use pitocin augmentation vs another dose of misoprostol vs cervidil placed at cervix for up to 12 hours. Leeanne would like to try Cervidil. 2. Will place at posterior fornix once available and use continuous monitoring and encourage some sleep. Reassess as indicated. KH Objective Temp Pulse Resp BP 99.7 F H 78 18 99/71 L 01/28/23 21:40 01/28/23 21:40 01/28/23 19:55 01/28/23 21:40 Laboratory Results WBC 9.71 10^3/uL (4.4-10.8) 01/27/23 19:40 RBC 3.74 10^6/uL (3.93-5.22) L 01/27/23 19:40 Hgb 11.6 g/dL (11.2-15.7) 01/27/23 19:40 Hct 33.2 % (36.0-46.0) L 01/27/23 19:40 MCV 89 fL (80-95) 01/27/23 19:40 MCH 31.0 pg (27.0-33.0) 01/27/23 19:40 MCHC 34.9 % (32.0-36.0) 01/27/23 19:40 RDW 12.2 % (11.7-14.6) 01/27/23 19:40 Plt Count 178 10^3/uL (130-400) 01/27/23 19:40 MPV 12.4 fL (8.0-11.0) H 01/27/23 19:40 Patient ABO/Rh O Negative 01/27/23 19:40 Antibody Screen NEGATIVE 01/27/23 19:40 Subjective Interval history since last seen: Leeanne is having regular non painful contractions with minimal change despite a total of 125 mcg of misoprostol in past 24 hours. She is requesting AROM but VE is 2.5/60/medium/-2/posterior. We discussed an additional dose of misoprostol or changing to cervidil as a steady release of hormone vs bolus release with misoprostol. She is aware that if contractions get too close we can remove this medication where we cannot with misoprostol. She agrees to trying Cervidil. Results Hemoglobin/Hematocrit: Hgb 11.6 g/dL (11.2-15.7) 01/27/23 19:40 Hct 33.2 % (36.0-46.0) L 01/27/23 19:40 Abnormal Lab Findings: Abnormal Labs 01/27/23 19:40 RBC 3.74 L Hct 33.2 L MPV 12.4 H
[2023-01-28] MEDS: Dinoprostone-CERVICAL 10 MG VSUPP VG (22:39)
[2023-01-29] VITALS (85 sets, daily range): BP systolic 95–125; BP diastolic 54–78; PULSE 0–119; RESP 17; TEMP 36.6–37.1; O2SAT 99; BMI 25.8
--- NOTE | 2023-01-29 00:38 | W.PM.OBNL1 ---
Date of service: 01/29/23 Time of Service: 00:38 Informed Consent Informed Consent: Induction of Labor and Risk,Benefits,Alternatives Discussed Pelvic Exam Comments: VE deferred Contractions Monitor Mode: External Contraction Frequency(min): 2-6 Contraction Duration(sec): 50-70 Intensity: Mild (patient reports slightly more intense when she was awake) Fetus A Monitor: Novii Heart Rate Baseline: 120 Variability: Moderate (6-25 BPM) Categories: Category I Accelerations: Present Amniotic Membrane Status: Intact Assessment Note: occasional variable deceleration with contraction, non recurrent and not at the time of this report Assessment and Plan Assessment and plan (1) Encounter for induction of labor: Status: Acute Assessment and plan: 1. continue present management and reassess in am or as indicated by maternal status. 2. VS changed to every 2 hours while awake. KH Objective Temp Pulse Resp BP 98.3 F 63 18 95/54 L 01/28/23 23:55 01/28/23 23:55 01/28/23 19:55 01/28/23 23:55 Laboratory Results WBC 9.71 10^3/uL (4.4-10.8) 01/27/23 19:40 RBC 3.74 10^6/uL (3.93-5.22) L 01/27/23 19:40 Hgb 11.6 g/dL (11.2-15.7) 01/27/23 19:40 Hct 33.2 % (36.0-46.0) L 01/27/23 19:40 MCV 89 fL (80-95) 01/27/23 19:40 MCH 31.0 pg (27.0-33.0) 01/27/23 19:40 MCHC 34.9 % (32.0-36.0) 01/27/23 19:40 RDW 12.2 % (11.7-14.6) 01/27/23 19:40 Plt Count 178 10^3/uL (130-400) 01/27/23 19:40 MPV 12.4 fL (8.0-11.0) H 01/27/23 19:40 Patient ABO/Rh O Negative 01/27/23 19:40 Antibody Screen NEGATIVE 01/27/23 19:40 Vital Signs Reviewed: Yes Subjective Interval history since last seen: Leeanne is sleeping at this time. Results Hemoglobin/Hematocrit: Hgb 11.6 g/dL (11.2-15.7) 01/27/23 19:40 Hct 33.2 % (36.0-46.0) L 01/27/23 19:40 Abnormal Lab Findings: Abnormal Labs 01/27/23 19:40 RBC 3.74 L Hct 33.2 L MPV 12.4 H
--- NOTE | 2023-01-29 03:11 | W.PM.OBNL1 ---
Date of service: 01/29/23 Time of Service: 03:11 Informed Consent Informed Consent: Induction of Labor and Risk,Benefits,Alternatives Discussed Pelvic Exam Comments: VE deferred Contractions Monitor Mode: External Contraction Frequency(min): 2 Contraction Duration(sec): 50-60 Intensity: Mild/Moderate Fetus A Monitor: Novii Heart Rate Baseline: 125 Variability: Moderate (6-25 BPM) Categories: Category I Assessment and Plan Assessment and plan (1) Encounter for induction of labor: Status: Acute Assessment and plan: 1. SROM clear fluid, Cervidil fell out 2. Leeanne would like to watch to see if her contractions now become stronger on their own. 3. Will reassess in < 4 hours and make plan of care if not in active labor. 4. continue to expect NVD. KH Objective Temp Pulse Resp BP 98.0 F 82 18 99/55 L 01/29/23 02:42 01/29/23 02:42 01/28/23 19:55 01/29/23 02:42 Laboratory Results WBC 9.71 10^3/uL (4.4-10.8) 01/27/23 19:40 RBC 3.74 10^6/uL (3.93-5.22) L 01/27/23 19:40 Hgb 11.6 g/dL (11.2-15.7) 01/27/23 19:40 Hct 33.2 % (36.0-46.0) L 01/27/23 19:40 MCV 89 fL (80-95) 01/27/23 19:40 MCH 31.0 pg (27.0-33.0) 01/27/23 19:40 MCHC 34.9 % (32.0-36.0) 01/27/23 19:40 RDW 12.2 % (11.7-14.6) 01/27/23 19:40 Plt Count 178 10^3/uL (130-400) 01/27/23 19:40 MPV 12.4 fL (8.0-11.0) H 01/27/23 19:40 Patient ABO/Rh O Negative 01/27/23 19:40 Antibody Screen NEGATIVE 01/27/23 19:40 Subjective Interval history since last seen: Leeanne had gush of clear fluid vaginally and Cervidil fell out. She is feeling contractions but might be able to fall asleep. She would like to watch for a couple of hours to see if her contractions become stronger on their own now. KH Results Hemoglobin/Hematocrit: Hgb 11.6 g/dL (11.2-15.7) 01/27/23 19:40 Hct 33.2 % (36.0-46.0) L 01/27/23 19:40 Abnormal Lab Findings: Abnormal Labs 01/27/23 19:40 RBC 3.74 L Hct 33.2 L MPV 12.4 H
--- NOTE | 2023-01-29 06:32 | W.PM.OBNL1 ---
Date of service: 01/29/23 Time of Service: 06:32 Informed Consent Informed Consent: Induction of Labor and Risk,Benefits,Alternatives Discussed Pelvic Exam Dilation: 4 Effacement (%): 70 station: -2 Cervix Position: posterior BISHOPS Score(Cervical Ripeness Score): 6 Contractions Monitor Mode: Palpation Contraction Frequency(min): 5-6 Intensity: Moderate Fetus A Monitor: Doppler Heart Rate Baseline: 135 Assessment and Plan Assessment and plan (1) Encounter for induction of labor: Status: Acute Assessment and plan: 1. VE done per patient request due to some rectal pressure 2. Contractions have spaced out some at this time but are more intense 3. Patient does not want pitocin and would like to continue present management 4. Will give a PO dose of misoprostol. Objective Temp Pulse Resp BP 98.3 F 81 18 95/54 L 01/29/23 06:13 01/29/23 06:13 01/28/23 19:55 01/29/23 06:13 Laboratory Results WBC 9.71 10^3/uL (4.4-10.8) 01/27/23 19:40 RBC 3.74 10^6/uL (3.93-5.22) L 01/27/23 19:40 Hgb 11.6 g/dL (11.2-15.7) 01/27/23 19:40 Hct 33.2 % (36.0-46.0) L 01/27/23 19:40 MCV 89 fL (80-95) 01/27/23 19:40 MCH 31.0 pg (27.0-33.0) 01/27/23 19:40 MCHC 34.9 % (32.0-36.0) 01/27/23 19:40 RDW 12.2 % (11.7-14.6) 01/27/23 19:40 Plt Count 178 10^3/uL (130-400) 01/27/23 19:40 MPV 12.4 fL (8.0-11.0) H 01/27/23 19:40 Patient ABO/Rh O Negative 01/27/23 19:40 Antibody Screen NEGATIVE 01/27/23 19:40 Vital Signs Reviewed: Yes Subjective Interval history since last seen: More uncomfortable but contractions have spaced out some. KH Results Hemoglobin/Hematocrit: Hgb 11.6 g/dL (11.2-15.7) 01/27/23 19:40 Hct 33.2 % (36.0-46.0) L 01/27/23 19:40 Abnormal Lab Findings: Abnormal Labs 01/27/23 19:40 RBC 3.74 L Hct 33.2 L MPV 12.4 H
[2023-01-29] MEDS: miSOPROStol 25 MCG TAB SL (07:11)
--- NOTE | 2023-01-29 09:08 | W.PM.OBNL1 ---
Date of service: 01/29/23 Time of Service: 09:08 Informed Consent Informed Consent: Induction of Labor and Risk,Benefits,Alternatives Discussed Pelvic Exam Dilation: 4.5 Effacement (%): 70 station: -2 Cervix Position: posterior BISHOPS Score(Cervical Ripeness Score): 6 Contractions Monitor Mode: Palpation Contraction Frequency(min): 3-5 Contraction Duration(sec): 60 Intensity: Moderate Fetus A Monitor: Novii (recent tracing CAT I with early decelerations noted) Assessment and Plan Assessment and plan (1) Encounter for induction of labor: Status: Acute Assessment and plan: 1. will continue present management and reassess in 1-2 hours or as indicated 2. Leeanne continues to prefer to avoid pitocin 3. Will add Zofran if needed for nausea. KH Objective Temp Pulse Resp BP 97.8 F 72 17 114/67 01/29/23 08:10 01/29/23 08:58 01/29/23 08:10 01/29/23 08:10 Laboratory Results WBC 9.71 10^3/uL (4.4-10.8) 01/27/23 19:40 RBC 3.74 10^6/uL (3.93-5.22) L 01/27/23 19:40 Hgb 11.6 g/dL (11.2-15.7) 01/27/23 19:40 Hct 33.2 % (36.0-46.0) L 01/27/23 19:40 MCV 89 fL (80-95) 01/27/23 19:40 MCH 31.0 pg (27.0-33.0) 01/27/23 19:40 MCHC 34.9 % (32.0-36.0) 01/27/23 19:40 RDW 12.2 % (11.7-14.6) 01/27/23 19:40 Plt Count 178 10^3/uL (130-400) 01/27/23 19:40 MPV 12.4 fL (8.0-11.0) H 01/27/23 19:40 Patient ABO/Rh O Negative 01/27/23 19:40 Antibody Screen NEGATIVE 01/27/23 19:40 Subjective Interval history since last seen: Feeling much more uncomfortable and more pressure. States she is nauseated as well. Results Hemoglobin/Hematocrit: Hgb 11.6 g/dL (11.2-15.7) 01/27/23 19:40 Hct 33.2 % (36.0-46.0) L 01/27/23 19:40 Abnormal Lab Findings: Abnormal Labs 01/27/23 19:40 RBC 3.74 L Hct 33.2 L MPV 12.4 H
--- NOTE | 2023-01-29 10:08 | NUR.NOTE ---
pt in tears. Pt's friend informed RN she had a conversation with pt telling her she needs pitocin. RN informed Pt and friend this is a conversation to be had with the economic analyst. CNM aware and is going in to speak with patient to come up with a plan. Nursing Note:
--- NOTE | 2023-01-29 10:22 | W.PM.OBNL1 ---
Date of service: 01/29/23 Time of Service: : Informed Consent Informed Consent: Induction of Labor and Risk,Benefits,Alternatives Discussed Pelvic Exam Dilation: 4.5 Effacement (%): 80 station: -2 Cervix Position: posterior BISHOPS Score(Cervical Ripeness Score): 7 Contractions Monitor Mode: External Contraction Frequency(min): 2-5 Contraction Duration(sec): 60 Intensity: Moderate Fetus A Monitor: Novii Heart Rate Baseline: 125 Variability: Moderate (6-25 BPM) Categories: Category I Accelerations: 15 X 15 Decelerations: None Assessment and Plan Assessment and plan (1) Encounter for induction of labor: Status: Acute Assessment and plan: 1. Per patient desire and as discussed with patient earlier for risks and benefits, she would like to start pitocin augmentation of labor to encourage delivery. 2. Declines epidural at this time but may want one. 3. Expect NVD. KH Objective Temp Pulse Resp BP 97.9 F 72 17 114/67 01/29/23 08:58 01/29/23 08:58 01/29/23 08:10 01/29/23 08:10 Laboratory Results WBC 9.71 10^3/uL (4.4-10.8) 01/27/23 19:40 RBC 3.74 10^6/uL (3.93-5.22) L 01/27/23 19:40 Hgb 11.6 g/dL (11.2-15.7) 01/27/23 19:40 Hct 33.2 % (36.0-46.0) L 01/27/23 19:40 MCV 89 fL (80-95) 01/27/23 19:40 MCH 31.0 pg (27.0-33.0) 01/27/23 19:40 MCHC 34.9 % (32.0-36.0) 01/27/23 19:40 RDW 12.2 % (11.7-14.6) 01/27/23 19:40 Plt Count 178 10^3/uL (130-400) 01/27/23 19:40 MPV 12.4 fL (8.0-11.0) H 01/27/23 19:40 Patient ABO/Rh O Negative 01/27/23 19:40 Antibody Screen NEGATIVE 01/27/23 19:40 Vital Signs Reviewed: Yes Subjective Interval history since last seen: Leeanne feels her contractions have spaced out and she is becoming tired of waiting and would like to begin pitocin augmentation. She prefer to see how labor progresses and will consider epidural. KH Results Hemoglobin/Hematocrit: Hgb 11.6 g/dL (11.2-15.7) 01/27/23 19:40 Hct 33.2 % (36.0-46.0) L 01/27/23 19:40 Abnormal Lab Findings: Abnormal Labs 01/27/23 19:40 RBC 3.74 L Hct 33.2 L MPV 12.4 H
[2023-01-29] MEDS: Lactated Ringers 1,000 ML 125 ML IV (11:03)
[2023-01-29] MEDS: Oxytocin/Normal Saline 30 UNIT/500 ML BAG 2 UNITS IV (11:03)
--- NOTE | 2023-01-29 13:54 | ANES.PREOP_ITS ---
General Info Date of Service Date Performed: 01/29/23 Height: 5 ft 7 in Weight: 74.843 kg Body Mass Index (BMI): 25.8 Meds Allergies and Home Medications Allergies Allergy/AdvReac Type Severity Reaction Status Date / Time No Known Allergies Allergy Verified 01/15/23 14:20 Home Medication Medication Instructions Recorded Unknown [No Known Home Meds] 06/29/22 Current Visit Medications: Current Medications Generic Name Dose Route Start Last Admin Trade Name Freq PRN Reason Stop Dose Admin Acetaminophen 1,000 mg 01/27/23 21:56 Acetaminophen 500 Mg Tab PO Q6H PRN PRN Fentanyl/Ropivacaine 200 ml 01/29/23 12:30 Fentanyl/Ropivacaine 2 Mcg/Ml And 0.1% 200 Ml Cadd Cassette EP DIRECTED HARMONY Ringer's Solution 1,000 mls @ 200 mls/hr 01/28/23 22:15 IV INFUSION PRN maternal / status Sodium Chloride 500 mls @ 0 mls/hr 01/28/23 22:07 Saline 500ml Bag IV PRN PRN As Directed Ringer's Solution 1,000 mls @ 125 mls/hr 01/29/23 10:30 01/29/23 11:03 IV 125 mls/hr INFUSION HARMONY Administration Sodium Chloride 500 mls @ 0 mls/hr 01/29/23 10:21 Saline 500ml Bag IV PRN PRN As Directed Oxytocin/Sodium Chloride 30 unit in 500 mls @ 2 mls/hr 01/29/23 10:30 01/29 12:06 Pitocin/Normal Saline IV 6 milliunits/min INFUSION HARMONY 6 mls/hr Titration Protocol 2 MILLIUNITS/MIN IV Miscellaneous Supplies 1 each 01/28/23 22:07 01/29/23 10:54 Iv Access IV 1 each DIRECTED PRN Administration maternal / status IV Miscellaneous Supplies 1 each 01/29/23 10:30 Iv Access IV DIRECTED HARMONY Ondansetron HCl 4 mg 01/29/23 09:10 Ondansetron 0.8 Mg/Ml Solution PO Q8H PRN PRN Sodium Chloride 0 ml 01/28/23 22:07 Normal Saline Flush 10 Ml Syr IVP PRN PRN Sodium Chloride 0 ml 01/29/23 10:21 Normal Saline Flush 10 Ml Syr IVP PRN PRN Terbutaline Sulfate 0.25 mg 01/28/23 22:07 Terbutaline 1 Mg/Ml Vial SC PRN PRN Zolpidem Tartrate 5 mg 01/27/23 23:00 Zolpidem 5 Mg Tab PO HS PRN PRN Sleep Zolpidem Tartrate 10 mg 01/29/23 21:00 Zolpidem 5 Mg Tab PO 2100 HARMONY PFSH Active Problems Active Problems: Problem Status Onset Code Post-dates O48.0 Encounter for induction of labor Z34.90 Maternal varicella, non-immune O09.899, Z28.39 Rh negative state in antepartum period O26.899, Z67.91 Z34.90 Medical History Medical History IUD surveillance Surgical History Surgical History Tooth extraction [place] teeth 2013: Vomiting with anesthesia Tobacco Smoking/Tobacco Use Status: Never Alcohol Alcohol Intake: never Substance Use Substance use: Occasionally Substance use type: marijuana Prental History History 3 Para 2 Hx # Term Pregnancies 2 Multiple births 0 Hx # Pregnancies 0 Ectopic pregnancies 0 AB induced 0 Hx Number of Living Children 2 AB spontaneous 0 Past Pregnancies Del. Date GA/Weeks # Preg Succ Route Wgt Sex Labor Lgth [facility] 41 No vaginal 3940.584 g Female [facility] Aniya Sosa cnm 09/04/19 40 No vaginal 3090.098 g Male 2 hrs 5 min [facility] Anuja Mejias CNM Delivery Date: 01/08/17 Last Updated by: Anuja Mejias CNM iol for post dates. w/o complications. Dian Delivery Date: 09/04/19 Last Updated by: Anuja Mejias CNM Baldev, arrhythmia Vital Signs and Lab Results Vital Signs Most Recent Vital Signs in EMR: Most Recent Vital Signs Temp Pulse Resp BP 36.7 C 113 H 17 114/64 01/29/23 13:30 01/29/23 13:54 01/29/23 10:24 01/29/23 13:51 Lab Results 01/27/23 19:40 Blood Type / Crossmatch: Patient ABO/Rh O Negative 01/27/23 Antibody Screen NEGATIVE 01/27/23 Complete Blood Count: White Blood Count 9.71 10^3/uL (4.4-10.8) 01/27/23 19:40 Red Blood Count 3.74 10^6/uL (3.93-5.22) L 01/27/23 19:40 Hemoglobin 11.6 g/dL (11.2-15.7) 01/27/23 19:40 Hematocrit 33.2 % (36.0-46.0) L 01/27/23 19:40 Platelet Count 178 10^3/uL (130-400) 01/27/23 19:40 Complete Metabolic Panel: No Data to Display Liver Function Panel: No Data to Display Coagulation Panel: No Data to Display Cardiac Panel: No Data to Display Arterial Blood Gas: No Data to Display Venous Blood Gas: No Data to Display Pancreas Panel: No Data to Display Thyroid Panel: No Data to Display Infectious Disease: No Data to Display Blood Cultures: No Data to Display Toxicology Panel: No Data to Display Panel: No Data to Display Anesthesia Assessment and Plan Anesthesia History Personal History: No History of Anesthesia Complications Family History: No Family History of Anesthesia Complications Exercise Tolerance Exercise Tolerance: Metabolic Equivalents>4 Pertinent Negatives Pertinent Negatives: No Symptoms of GERD, No Major Cardiovascular Symptoms or Complaints and No Major Pulmonary Symptoms or Complaints Cardiac & Pulmonary Exam Cardiac Exam: Normal S1/S2 Heart Sounds Pulmonary Exam: Clear Bilateral Breath Sounds Implantable Cardiac Device Does patient have a Pacemaker or an ICD?: No Airway Exam Known Difficult Airway: No Mallampati Class: 2 Mouth Opening: Normal (> 3cm) Thyromental Distance: Greater than 3 cm Neck Range of Motion: Full ROM Neck Circumference: Normal Teeth Condition: Normal Dentition ASA Classification ASA Score: ASA 2 Emergency Case?: No NPO Status NPO Status: Full Stomach Status Status: Confirmed Anesthesia Plan Resuscitation Status: Full Code Anesthesia Technique: Epidural Anesthesia Airway Planned: Natural Airway Monitors Used: Standard Monitors
--- NOTE | 2023-01-29 14:00 | W.ANESNEU ---
Epidural/Spinal Catheter Date Performed: 01/29/23 Procedure Start: 13:10 Procedure Stop: 13:30 Procedure Location: Obstetrics Reason Performed: Labor Epidural Standard Monitors Applied: ECG, Blood Pressure and SpO2 Patient Position: Sitting Sedation Given (Indicate Dose Given): No Sedation given Patient Mental Status: Awake Sterility: Hand Hygiene, Surgical Cap, Surgical Mask, Sterile Gloves and Sterile Drape/Sheet Procedure Location: L3-L4 Interspace Epidural Needle: Tuohy 18 Gauge Needle Length: 3.5 Inch Needle Approach: Midline Epidural Procedure: Skin Prepped, Sterile Drape Placed, 1% Lidocaine to skin and subcutaneous tissue with 25G needle, Tuohy Needle placed, JAMIE to Saline Used and Epidural Catheter Placed Catheter Placed?: Catheter Placed Test Dose (Indicate Dose Given): 3ml 1.5% Lidocaine with 1:200K Epinephrine Given Loss of Resistance Depth (cm): 6 Catheter depth at skin (cm): 17 Dressing: Chlorhexidine Dressing Epidural Provider Bolus (Indicate Dose Given): None Given Additives (Indicate Dose Given ): None Infusion Medication: Medication Infusion Began Medication Infusion: Ropivacaine 0.1% with Fentanyl 2mcg/ml Maintenance Infusion Rate (ml/hour): 12 PCEA Bolus Dose (ml): 5 Block Level: N/A Paresthesia: None Ultrasound: Used to janak site Number of Attempts (See previous attempts in note section): 2 Procedure Tolerated: No Complications and Patient tolerated well Procedure Outcome: Successful Procedure Comment:: 1st attempt: good resistance. pt moved and loss the ability to thread. 2nd attempt: no issues. thread complications
--- NOTE | 2023-01-29 14:15 | W.ANESNEU ---
Epidural/Spinal Catheter Date Performed: 01/29/23 Procedure Start: 13:00 Procedure Stop: 13:30 Requesting Provider: Anuja Lopez Procedure Location: Obstetrics Reason Performed: Labor Epidural Standard Monitors Applied: ECG, Blood Pressure and SpO2 Patient Position: Sitting Sedation Given (Indicate Dose Given): No Sedation given Patient Mental Status: Awake Sterility: Hand Hygiene, Surgical Cap, Surgical Mask, Sterile Gloves and Chlorhexidine Procedure Location: L3-L4 Interspace Epidural Needle: Tuohy 18 Gauge Needle Length: 3.5 Inch Needle Approach: Midline Epidural Procedure: Skin Prepped, Sterile Drape Placed, Tuohy Needle placed, JAMIE to Saline Used, Epidural Catheter Placed, Negative Heme, Negative CSF Flow and Tuohy Needle Removed Catheter Placed?: Catheter Placed Test Dose (Indicate Dose Given): 3ml 1.5% Lidocaine with 1:200K Epinephrine Given Loss of Resistance Depth (cm): 6 Catheter depth at skin (cm): 12 Dressing: Chlorhexidine Dressing Epidural Provider Bolus (Indicate Dose Given): Total bolus dose given in 3-5 ml divided doses and Total Ropivacaine 0.1% with Fentanyl 2mcg/ml Given from pump. (ml) Dose:: 5 Additives (Indicate Dose Given ): None Infusion Medication: Medication Infusion Began Medication Infusion: Ropivacaine 0.1% with Fentanyl 2mcg/ml Maintenance Infusion Rate (ml/hour): 12 PCEA Bolus Dose (ml): 10 Block Level: N/A Paresthesia: None Ultrasound: Used to janak site Number of Attempts (See previous attempts in note section): 2 Procedure Tolerated: No Complications and Patient tolerated well Procedure Outcome: Successful Procedure Comment:: 1st attempt unsuccessful. Good resistance and failed to advance when patient moved. 2nd attempt successful. able to advance catheter and pt tolerated well. Performed By: Carleen Kwon
--- NOTE | 2023-01-29 14:20 | W.PM.OBNL1 ---
Date of service: 01/29/23 Time of Service: 14:20 Informed Consent Informed Consent: Induction of Labor and Risk,Benefits,Alternatives Discussed Pelvic Exam Comments: deferred Contractions Monitor Mode: External Contraction Frequency(min): 2-4 Contraction Duration(sec): 60 Intensity: Moderate Fetus A Monitor: Novii Heart Rate Baseline: 120 Variability: Moderate (6-25 BPM) Categories: Category I Accelerations: Present Assessment and Plan Assessment and plan (1) Encounter for induction of labor: Status: Acute Assessment and plan: 1. will continue to increase pitocin to achieve adequate contractions and reassess VE as indicated 2. Expect NVD. KH Objective Temp Pulse Resp BP 98.1 F 99 H 17 123/74 01/29/23 13:30 01/29/23 14:18 01/29/23 10:24 01/29/23 14:06 Laboratory Results WBC 9.71 10^3/uL (4.4-10.8) 01/27/23 19:40 RBC 3.74 10^6/uL (3.93-5.22) L 01/27/23 19:40 Hgb 11.6 g/dL (11.2-15.7) 01/27/23 19:40 Hct 33.2 % (36.0-46.0) L 01/27/23 19:40 MCV 89 fL (80-95) 01/27/23 19:40 MCH 31.0 pg (27.0-33.0) 01/27/23 19:40 MCHC 34.9 % (32.0-36.0) 01/27/23 19:40 RDW 12.2 % (11.7-14.6) 01/27/23 19:40 Plt Count 178 10^3/uL (130-400) 01/27/23 19:40 MPV 12.4 fL (8.0-11.0) H 01/27/23 19:40 Patient ABO/Rh O Negative 01/27/23 19:40 Antibody Screen NEGATIVE 01/27/23 19:40 Subjective Interval history since last seen: epidural is in place but is slow to cover patients lower left side. She is overall feeling better. KH Results Hemoglobin/Hematocrit: Hgb 11.6 g/dL (11.2-15.7) 01/27/23 19:40 Hct 33.2 % (36.0-46.0) L 01/27/23 19:40 Abnormal Lab Findings: Abnormal Labs 01/27/23 19:40 RBC 3.74 L Hct 33.2 L MPV 12.4 H
--- NOTE | 2023-01-29 14:59 | W.OBDELIVERY ---
Date of service: 01/29/23 Time of Service: 15:00 OB Labor/ Delivery Information Baby A Delivery Delivery Method: Spontaneaous Presentation: Cephalic Cephalic Position: Vertex Vertex Position: Left Occipital Anterior Cord Description-Baby A: 3 Vessels and Clamped/Cut Amniotic Fluid: Clear Estimated Blood Loss: 350 Delivery Outcome: Liveborn Infant Complications: none Infant Transferred: Remains with Mother Note: Leeanne Moon presented for industion of labor at 42 weeks gestation for post dates. She had misoprostol and cervidil for cervical ripening and then had SROM of clear fluid. Labor was slow to progress and pitocin was utilized to make contractions effective. Epidural was requested at 4.5 cm for pain management. FHR tracing was CAT I for majority of labor and occasional variable decelerations were noted at times making tracing CAT II but resolved with repositioning. Leeanne had vaginal pressure and was noted to be 10/100/+2 at 1433. Quick second stage huddle and with excellent pushing effort Baby gurmeet Moon was born into the hands of Leeanne's friend, Nikki Sheikh with typewriters functional tester hands supporting. Baby's arms delivered with gentle pushing and then Leeanne reached to bring her baby to her chest. Delayed cord clamping for approximately 5 minutes of life and then double clamped and cut by Kris (FODaisy). score 8 at 1 minute and 9 at 5 minutes. Placenta delivered via doss mechanism, intact at 1541. Fundus firmed to U-2 with massage. IV pitocin was increased at time of per protocol. Perineum and vagina are intact. Sponge, needle and instrument count are correct. Leeanne plans to breast feed her daughter, Ben Turner. Baby's weight 7lb 7.05oz.Mother and baby are in satisfactory condition. Expect normal PP course. Leeanne plans to take her placenta homr with her. Providers Nurse Medical Clerical Assistant: Anuja Lopez Sander Wooden Pencils: Malena Hilliard Nurse: Nuvia Valencia Nurse: Agueda Vinson Labor/Delivery Information Number of Babies in Womb: 1 Steroids Given: None Reason Steroids Not Administered: N/A Group Beta Strep: Negative Antibiotics Administered: No Rubella Status: Immune Blood Type: O- Varicella Immunity: Nonimmune Maternal Complications: None Shoulder Dystocia: No Stages of Labor Onset of Labor Date: 01/29/23 Onset of Labor Time: 12:00 Complete Dilatation Date: 01/29/23 Complete Dilatation Time: 14:33 Labor - Stage 1 Duration: 2 hours and 33 minutes ROM Baby A: 01/29/23 ROM Baby A: 03:02 ROM Total Time- Baby A: [id number] Infant Delivery Date-Baby A: 01/29/23 Infant Delivery Time-Baby A: 14:42 Labor Stage 2 Duration: 9 minutes Placenta Delivery Date-Baby A: 01/29/23 Placenta Delivery Time-Baby A: 14:51 Labor-Stage 3 Duration: 9 minutes Total Length of Labor-Baby A: 2 hours and 42 minutes Placenta Cultured: No Placenta Status: Delivered Baby A Infant Gender: Female Gestational Status: Postterm (>42 wks) Gestational Age in Weeks/Days: 42 Weeks and 2 Days Score-1 Minute Interval(Baby A) Heart Rate-1 minute: 100 BPM or Greater Respiratory Effort- 1 minute: Slow Respiration/Weak Cry Muscle Tone-1 minute: Active Movement Reflex Response-1 minute: Prompt Response Color-1 minute: Bluish Hands or Feet Total Score-1 minute: 8 Score-5 Minute Interval(Baby A) Heart Rate- 5 minute: 100 BPM or Greater Respiratory Effort-5 minute: Spontaneous/Strong Cry Muscle Tone-5 minute: Active Movement Reflex Response-5 minute: Prompt Response Color-5 minute: Bluish Hands or Feet Total Score- 5 minute: 9
--- NOTE | 2023-01-29 16:34 | W.ANESPOSTOP ---
Postoperative Evaluation Date, Time and Location Date Performed: 01/29/23 Time Performed: 16:34 Patient Location: Obstetrics Vital Signs Most Recent Imported Vital Signs: Most Recent Vital Signs Temp Pulse Resp BP Pulse Ox 36.8 C 83 17 102/69 99 01/29/23 14:56 01/29/23 16:13 01/29/23 16:13 01/29/23 16:13 01/29/23 14:56 Pain Score Most Recent Pain Score: Most Recent Pain Score Pain Level [Abdomen] 0 01/29/23 16:13 Assessment Mental Status: Awake (Alert & Oriented to Patient Baseline) Airway and Respiratory Function: Patent airway with normal (patient baseline) respiratory exam Cardiovascular Function: Hemodynamically Stable Hydration Status: Adequately Hydrated Nausea & Vomiting: No Nausea or Vomiting Pain: Pt. Denies Any Pain Peripheral Nerve Block: Other (Epidural appropriately resolving, denied complaint, denied headache, denied backpain. Per RN catheter removed with tip intact.)
[2023-01-30 06:00] VITALS: BP 113/68; PULSE 73; TEMP 37.2
[2023-01-30 08:06] VITALS: BP 106/62; PULSE 79; RESP 18; TEMP 37; O2SAT 98
--- NOTE | 2023-01-30 11:51 | W.PM.OBPNV1 ---
Date of service: 01/30/23 Time of Service: 11:51 Assessment and Plan Assessment and plan (1) Term delivered: Status: Acute Assessment and plan: A: nml PPD #1 off to a good start processing experience, overall satisfied P: Appropriate to discharge pt this afternoon Will give RhoGam if indicated and Varicella vaccine is ordered Written instructions reviewed and given to pt Pt declines BCM, f/up @ 2 & 6 wks Subjective Subjective Patient comments: No complaints, Pain well controlled, Tolerating diet and Bowel Movement Patient's Mood: happy Two [place] baby status: Doing well, Nursing well, Rooming in and Strong Bonding Observed Two Dot feeding status: Exclusively breast feeding Exam Physical Exam Vital signs: Temp Pulse Resp BP Pulse Ox 98.6 F 79 18 106/62 98 01/30/23 08:06 01/30/23 08:06 01/30/23 08:06 01/30/23 08:06 01/30/23 08:06 Vital Signs Reviewed: Yes Constitutional Constitutional: no acute distress, average body habitus and cooperative HEENT Exam HEENT Exam: Normal Neck Exam Neck Exam: Normal Breast Exam Bilateral: Breast Exam: Normal and Soft Nipple Exam: Normal and Uninjured Respiratory Exam Respiratory Exam: Normal Cardiovascular Exam Cardiovascular Exam: Normal Abdominal Exam Abdomen: Other (soft, nontender) Fundal Exam Fundus: Below Umbilicus and Firm Rectal Exam Rectal Exam: Normal Exam Patient deferred: external exam and perineal exam Perineum: Intact Extremities Exam Extremity Exam: Normal Back/Spine/Pelvis Exam Back Exam: Normal Skin Exam Skin Exam: Normal Neurological Exam Neurological Exam: Normal Psychiatric Exam Psychiatric Exam: Normal
[2023-01-30 12:57] VITALS: BP 108/66; PULSE 72; RESP 18; TEMP 37.3; O2SAT 96
--- NOTE | 2023-01-30 15:32 | DSE_ITS ---
Date of service: 01/30/23 Time of Service: 15:32 DS: Diagnosis Discharge Diagnosis (1) Term delivered: Status: Acute Discharge Plan Disposition Patient Disposition: Home Condition: Good Discharge Details Reason For Visit: Induction for postdates Admit Date/Time: 01/27/23 18:42 Admit Provider: Nohelia Quiñonez Attending Provider: Nohelia Quiñonez Primary Care Provider: Milagro Corona Hospital Course Hospital Course: on 2nd day of induction for postdates, nml PP course Home Meds and New Rx's Prescriptions: No Action No Known Home Meds Discharge Instructions Additional Instructions: Please keep 2 and 6 wk appt's, call for any and all questions or concerns. Stand Alone Forms: BC Instructions, BC Post Vaginal Deliver Activity:: Activity as Tolerated Equipment/Supplies:: No Equipment Needed Diet:: Normal Diet Discharge Orders Discharge Orders: Discharge Order (Routine); Ordered 01/30/23 Ordered By: Nohelia Quiñonez OB:DS Summary Summary Vaginal Delivery Method: Spontaneaous Episiotomy Description: None Contraception Discussed Contraception Discussed: Yes Contraceptive Plan: Foam/Condoms and Diaphragm (considering [place]), [place] Infant Gender-Baby A: Female weight: 7 lb 7.05 oz Status at Discharge Functional status at discharge: independent ambulation Overall status at discharge: patient is progressing back to baseline Mental Status: mental status grossly normal Speech and Movement: speech and movement normal and speech clear Mood: congruent mood Affect: normal affect Exam Physical Exam Vital signs: Temp Pulse Resp BP Pulse Ox 99.1 F 72 18 108/66 96 01/30/23 12:57 01/30/23 12:57 01/30/23 12:57 01/30/23 12:57 01/30/23 12:57 Constitutional Constitutional: no acute distress, average body habitus and cooperative HEENT Exam HEENT Exam: Normal Neck Exam Neck Exam: Normal Breast Exam Bilateral: Breast Exam: Normal and Soft Respiratory Exam Respiratory Exam: Normal Cardiovascular Exam Cardiovascular Exam: Normal Abdominal Exam Abdomen: Other (soft, nontender) Fundal Exam Fundus: Below Umbilicus and Firm Rectal Exam Rectal Exam: Normal Exam Patient deferred: external exam and perineal exam Perineum: Intact Extremities Exam Extremity Exam: Normal Back/Spine/Pelvis Exam Back Exam: Normal Skin Exam Skin Exam: Normal Neurological Exam Neurological Exam: Normal Psychiatric Exam Psychiatric Exam: Normal Additional findings Additional findings: deferred PFSH All Active Problems (Updated 01/30/23 @ 11:53 by Nohelia Quiñonez) Term delivered (Acute) Maternal varicella, non-immune (Acute) Rh negative state in antepartum period (Acute) (Acute) Medical History (Updated 01/30/23 @ 11:53 by Nohelia Quiñonez) Encounter for induction of labor IUD surveillance Post-dates Surgical History Tooth extraction [place] teeth 2013: Vomiting with anesthesia Family History Grandmother Essential hypertension Thyroid disease Grandfather Heart disease Sister Seizure disorder ? if emotionally triggered. Mother Essential hypertension Other Status post normal vaginal delivery Social History Smoking/Tobacco Use Status: Never Smoking risk assessment performed?: Yes Alcohol Intake: never Drug use: Occasionally Substance use type: marijuana Seatbelt use: always Do you feel safe at home: Yes Do you feel safe in your relationship?: Yes Female Reproductive History Menstrual Age of Menarche: 11 control method: none History History 3 Para 2 Hx # Term Pregnancies 2 Multiple births 0 Hx # Pregnancies 0 Ectopic pregnancies 0 AB induced 0 Hx Number of Living Children 2 AB spontaneous 0 Past Pregnancies Del. Date GA/Weeks # Preg Succ Route Wgt Sex Labor Lgth Anesth esia Location [facility] 01/08/17 41 No vaginal 8 lb 11 oz Female 12 regional Aniya Sosa cnm 09/04/19 40 No vaginal 6 lb 13 oz Male 2 hrs 5 min [facility] Anuja Mejias CNM Delivery Date: 01/08/17 Last Updated by: Anuja Mejias CNM iol for post dates. w/o complications. Dian Delivery Date: 09/04/19 Last Updated by: ROSEANNE Madridence, arrhythmia DS: Data Vitals/I&O Vitals and I&O: Vital Signs Temperature 99.1 F 01/30/23 12:57 Temperature Source Oral 01/30/23 12:57 Pulse 72 01/30/23 12:57 Pulse Rhythm Regular 01/30/23 08:06 Respiratory Rate 18 01/30/23 12:57 Respiratory Depth Normal 01/29/23 19:00 Blood Pressure 108/66 01/30/23 12:57 Blood Pressure Mean 80 01/30/23 12:57 Pulse Oximetry 96 01/30/23 12:57 Pain Level 0 01/29/23 16:13 Comment See vitals flowsheet 01/27/23 19:38 Intake & Output 01/29/23 01/30/23 01/30/23 23:59 11:59 23:59 Intake Total 1498.967 / 1500.000 Output Total 800 / 1300 1300 / 1300 Balance 698.967 / 200.000 -1300 / -1300 Weight 165 lb Intake: IV 1498.967 / 1500.000 Output: Urine 700 / 1000 1300 / 1300 Emesis 100 / 300 Data Completed and Pending Labs on day of discharge: Labs from last 24 hours 01/30/23 01/27/23 08:00 19:40 Screen Pending Rhogam Unit Number [id number] Unit Expiration Date 09/07/23 9856 Product Lot # [id number]
== END 2023-01-30 15:55 | disposition home or self-care (01) | DRG 806 ==
PROVIDERS: Admitting Provider Advanced Practice Midwife; PCP Nurse Practitioner Family; Visit Provider Advanced Practice Midwife
DX: O48.0 Post-term pregnancy (principal); O36.0930 Maternal care for other rhesus isoimmunization, third trimester, not applicable or unspecified; Z37.0 Single live birth; Z3A.42 42 weeks gestation of pregnancy
CPT/HCPCS: 36415; 85027; 85461; 86850; 86900; 86901; 90384; J2790; J3490

== ENCOUNTER 2025-03-03 13:57 | Outpatient (REF) | payer MEDICAID, SELFPAY ==
--- NOTE | 2025-03-03 13:30 | PAPFT_PTH ---
PATIENT: Leeanne Moon LOC: [facility] U#:[id number] AGE/SX: 30/F ROOM: RE03/03/[address]: Rose Gardner NP : 1995 BED: DIS: 03/03/2025 SPEC #: [id number] RECD: 03/03/25 18:05 STATUS: DANY REQ #: [id number] MADDIE: 03/03/25 13:[address]: Kendra ARIAS,Rose DEPT: [facility] Cytology RECD BY: Letha Pritchard ENTERED: 03/03/25 18:05 SP TYPE: PAPFT OTHR DR: Milagro Corona Tissues: 1 - CX/ENDOCX FOR PAP SMEARS Procedures: PAP THIN PREP/UVM Screening Comments: [id number]
== END 2025-03-03 13:58 | disposition home or self-care (01) ==
LOC: LBN 13:57
PROVIDERS: PCP Nurse Practitioner Family; Visit Provider Nurse Practitioner Women's Health
DX: Z12.4 Encounter for screening for malignant neoplasm of cervix (principal)
CPT/HCPCS: 88142

== ENCOUNTER 2025-06-05 02:17 | Emergency (ER) | payer MEDICAID, SELFPAY ==
[2025-06-05] VITALS (15 sets, daily range): BP systolic 84–106; BP diastolic 55–72; PULSE 66–84; RESP 16–22; TEMP 36; O2SAT 96–100
--- NOTE | 2025-06-05 02:22 | ED.GENADUL_ITS ---
Discharge Plan Disposition Patient Disposition: Home Condition: Improving Discharge Details Clinical Impression: Alcohol intoxication Primary Care Provider: Milagro Corona ED Provider: Christine Varma Home Meds and New Rx's Prescriptions: Continued Mirena 21 mcg/24hr (up to 8 yrs) 52 mg intrauterine device 1 device intrauterine ONCE Qty: 1 0RF Discharge Instructions Instructions: Alcohol Intoxication ED Additional Instructions: -Do not binge drink. This is very bad for you. -Call your primary care doctor in the morning to schedule an appointment to be seen within the next 72 hours to follow up on your visit here. At that visit mention your potassium which is slightly low here in the ED. -Return to the emergency department for new or worsening symptoms including ve rtgio, if you begin vomiting again, develop abdominal pain, or if you have any other concerns. HPI General Mode of arrival: wheelchair . Date/Time Provider Initiated Documentation: 06/05/25 02:18 . Limitations to Documentation: no limitations . Information obtained by: patient . HPI Narrative: 30yo previously healthy female presenting for alcohol intoxication and vomiting. Reports drinking three whiskey sours and a [place] iced tea at the bar [employer], which is much more than she typically drinks. Has been vomiting for the last hour. No falls or head injuries. No abdominal pain. Aside from N/V, dizziness, and really drunk, no other symptoms. No chest pain, shortness of breath, headache, numbness, tingling, weakness. Entirely in her usual state of health prior to drinking tonight; no fevers, chills, rash, diarrhea, or other concerns. Related Data Home Medications ?Medication ?Instructions ?Recorded ?Confirmed levonorgestrel (Mirena) 1 device intrauterine ONCE # 1 ea 03/03/25 06/05/25 Previous Rx's ?Medication ?Instructions ?Recorded levonorgestrel (Mirena) 1 device intrauterine ONCE # 1 ea 03/03/25 Allergies Allergy/AdvReac Type Severity Reaction Status Date / Time No Known Allergies Allergy Verified 06/05/25 02:27 General WESLEY: 4 Review of Systems Narrative: see HPI Exam Narrative Exam Narrative: General: Alert, clutching emesis bag Head: Normocephalic, atraumatic Neck: Trachea midline, ?Neck supple. ENT: ?MMM.? Cardiac: ?RRR, no murmurs appreciated Resp: No respiratory distress. CTAB. Abd: ?Soft, non-distended, nontender Extremities: ?No deformities.? No peripheral edema. Neuro: ? GCS 15.? PERRL.? EOMI.? Fluent speech, no dysarthria. Motor- 5/5 strength symmetric bilateral upper and lower extremities Sensation- ?Intact to light touch and symmetric multiple dermatomes including upper and lower extremities Coordination- + dysmetria on finger to nose bilaterally Reflexes- 2/4 achilles & patellar, no clonus Gait/station: ?Unsteady CRANIAL NERVES: II: Pupils equal and reactive, III, IV, : EOM intact, no gaze preference or deviation, no nystagmus. V: normal sensation in V1, V2, and V3 segments bilaterally VII: no asymmetry, no nasolabial fold flattening VIII: normal hearing to speech IX, X: normal palatal elevation, no uvular deviation XI: 5/5 head turn and 5/5 shoulder shrug bilaterally XII: midline tongue protrusion Medical Decision Making 30yo previously healthy female presenting for alcohol intoxication and vomiting, onset after 4 drinks at bar this evening (atypical consumption for her). N/V, dizziness, feels 'really drunk'. [place] entirely normal before she started drinking tonight. Vital signs reassuring on arrival. Does appear clinically intoxicated on exam. Unsteady gait and dysmetria, otherwise normal neurologic exam. Very low suspcion for posterior stroke or ICH given history/age/lack of risk factors; would not get CT at this time. No abdominal tenderness to suggest obstruction, appendicitis, other acute/surgical intrabdominal process. Will give IVF and zofran and send labs, plan to monitor until clinically sober. Labs reviewed as below, CBC reassuring with no leukocytosis or anemia, CMP with borderline hypokalemia at 3.4 and no actionable abnormalities, Mg normal, etoh 146. On reassessment she reports feeling better, no further vomiting. Vital signs remain reassuring. Will allow time to metabolize. Patient subsequently awake, alert, requesting discharged home. Tolerated PO fluids without difficulty. Ambulated in department steadily independently. No dysmetria on finger to nose. Friend at bedside to drive her home. Advised to followup with her PCP regarding borderline hypokalemia (suspect 2/t vomiting, will not replace now as this has resolved). Discharged home; discharge instructions and return precautions were reviewed with patient who verbalized understanding. All questions were answered and she is in full agreement with the plan. Lab Data Lab results reviewed: Yes I reviewed the patient's lab results. Labs: Laboratory Tests Range/Units 06/05/25 02:32 WBC (4.4-10.8) 10^3/uL 10.79 RBC (3.93-5.22) 10^6/uL 3.95 Hgb (11.2-15.7) g/dL 11.5 Hct (36.0-46.0) % 35.2 L MCV (80-95) fL 89 MCH (27.0-33.0) pg 29.1 MCHC (32.0-36.0) % 32.7 RDW (11.7-14.6) % 13.3 Plt Count (130-400) 10^3/uL 181 MPV (8.0-11.0) fL 12.9 H Immature Gran % % 0.0 Neutrophils % % 43.0 Lymphocytes % % 46.0 Atypical Lymphs % % 6 Monocytes % % 3.0 Eosinophils % % 2.0 Basophils % % 0.0 Nucleated RBC % (0.0-0.3) % 0.0 Absolute Neutrophils (1.2-6.7) 10^3/uL 4.64 Absolute Lymphocytes (1.2-3.4) 10^3/uL 5.61 H Absolute Monocytes (0.1-0.8) 10^3/uL 0.32 Absolute Eosinophils (0.0-0.7) 10^3/uL 0.22 Absolute Basophils (0.0-0.2) 10^3/uL 0.00 RBC Morphology Normal Sodium (136-145) mmol/L 142 Potassium (3.5-5.1) mmol/L 3.4 L Chloride (98-107) mmol/L 103 Carbon Dioxide (21.0-32.0) mmol/L 26.0 Anion Gap (3-11) mmol/L 13.0 H BUN (7-18) mg/dL 13 Creatinine (0.55-1.02) mg/dL 0.7 Est GFR (CKD-EPI 2020) (mL/min/1.73m2) 119.99 Glucose (74-106) mg/dL 103 Calcium (8.5-10.1) mg/dL 8.9 Magnesium (1.8-2.4) mg/dL 1.9 Total Bilirubin (0.2-1.0) mg/dL 0.2 AST (15-37) U/L 19 ALT (14-59) U/L 19 Alkaline Phosphatase (46-116) U/L 77 Total Protein (6.4-8.2) g/dL 8.2 Albumin (3.4-5.0) g/dL 3.9 Ethyl Alcohol (<10) mg/dL 146.7 H PFSH All Active Problems (Updated 06/05/25 @ 03:11 by Christine Varma MD) Alcohol intoxication (Acute) Medical History (Updated 06/05/25 @ 03:11 by Christine Varma MD) IUD surveillance (03/03/25) Mirena Surgical History Tooth extraction [place] teeth 2013: Vomiting with anesthesia Family History Grandmother Essential hypertension Thyroid disease Grandfather Heart disease Sister Seizure disorder ? if emotionally triggered. Mother Essential hypertension Other Status post normal vaginal delivery Social History Smoking/Tobacco Use Status: Never Smoking risk assessment performed?: Yes Alcohol Intake: current Alcohol Intake frequency: holidays/special occasions only Alcohol type: hard liquor Drug use: Occasionally Substance use type: marijuana Seatbelt use: always Do you feel safe at home: Yes Do you feel safe in your relationship?: Yes Female Reproductive History Menstrual Age of Menarche: 11 control method: progestin IUCD History History 3 Para 3 Hx # Term Pregnancies 3 Multiple births 0 Hx # Pregnancies 0 Ectopic pregnancies 0 AB induced 0 Hx Number of Living Children 3 AB spontaneous 0 Past Pregnancies Del. Date GA/Weeks # Preg Succ Route Wgt Sex Labor Lgth Anesth esia Location [facility] 01/08/17 41 No vaginal 3940.584 g Female 12 regional Aniya Sosa cnm 09/04/19 40 No vaginal 3090.098 g Male 2 hrs 5 min [facility] Anuja Mejias CNM 01/29/23 42 No Yes vaginal 3375.011 g Female 2hr 42min regional ROSEANNE Claros Delivery Date: 01/08/17 Last Updated by: Anuja Mejias CNM iol for post dates. w/o complications. Dian Delivery Date: 09/04/19 Last Updated by: Anuja Mejias CNM Bal[place], arrhythmia Delivery Date: 01/29/23 Last Updated by: JACKIE Londono Rain; Induction of Labor, Postdates; Epidural;
[2025-06-05] MEDS: Normal Saline 1,000 ML 1000 ML IV (02:30)
[2025-06-05] MEDS: Ondansetron 4 MG/2 ML VIAL IVP (02:30)
[2025-06-05 02:49] LABS: Abs Immature Grans 0.03 10^3/uL (0.0-0.06); HCT 35.2 % (36.0-46.0); HGB 11.5 g/dL (11.2-15.7); MCH 29.1 pg (27.0-33.0); MCHC 32.7 % (32.0-36.0); MCV 89 fL (80-95); MPV 12.9 fL (8.0-11.0); Platelet Count 181 10^3/uL (130-400); RBC 3.95 10^6/uL (3.93-5.22); RDW 13.3 % (11.7-14.6); RDW-SD 43.8 fL; WBC 10.79 10^3/uL (4.4-10.8)
[2025-06-05 02:56] LABS: ALT 19 U/L (14-59); AST 19 U/L (15-37); Albumin 3.9 g/dL (3.4-5.0); Alkaline Phosphatase 77 U/L (46-116); Anion Gap 13.0 mmol/L (3-11); BUN 13 mg/dL (7-18); Bilirubin, Total 0.2 mg/dL (0.2-1.0); CO2 26.0 mmol/L (21.0-32.0); Calcium 8.9 mg/dL (8.5-10.1); Chloride 103 mmol/L (98-107); Estimated GFR 119.99 (mL/min/1.73m2); Glucose 103 mg/dL (74-106); Magnesium 1.9 mg/dL (1.8-2.4); Potassium 3.4 mmol/L (3.5-5.1); Sodium 142 mmol/L (136-145); Total Protein 8.2 g/dL (6.4-8.2)
[2025-06-05 03:02] LABS: Immature Grans % 0.0 %; RBC Morphology Normal
== END 2025-06-05 05:09 | disposition home or self-care (01) ==
PROVIDERS: Emergency Provider Student in an Organized Health Care Education/Training Program; PCP Nurse Practitioner Family
DX: F10.920 Alcohol use, unspecified with intoxication, uncomplicated (principal)
CPT/HCPCS: 99284; 99283; 36415; 36416; 82962; 96374; 80053; 96361; 80320; 83735; 85025; J2405